=== PATIENT | female | born 1970 | race Two or more races ===

== ENCOUNTER 2024-05-18 02:38 | Inpatient (IN) | payer OTHER ==
[2024-05-18] VITALS (11 sets, daily range): BP systolic 108–135; BP diastolic 58–79; PULSE 63–95; RESP 16–20; TEMP 97.4–98.7; O2SAT 91–99
[~2024-05-18] VITALS: Ht 157.5 cm; Wt 59.2 kg
[2024-05-18] MEDS: DexAMETHasone SOD PHOS 10MG/1ML VIAL INJ ONE (02:39)
[2024-05-18] MEDS: IPRATROPIUM BROM 0.5 MG/2.5ML INH SOL NEB ONE (03:34)
[2024-05-18] MEDS: ALBUTEROL SULF 2.5 MG/0.5ML(0.5%) NEB SOLN NEB ONE (03:34)
[2024-05-18] MEDS: ACETAMINOPHEN 500 MG TAB or CAP PO ONE (03:35)
[2024-05-18] MEDS: DexAMETHasone INJECTION 10 MG in D5W 5% 50 ML IV ONE (03:40)
[2024-05-18 04:03] LABS: Basophils # (auto) 0 10 ^3/uL (0-0.2); Basophils % (auto) 0.8 % (0.0-2.0); Eosinophils # (auto) 0.1 10 ^3/uL (0-0.8); Eosinophils % (auto) 0.9 % (0.0-7.0); Hematocrit 39.9 % (36.0-46.0); Hemoglobin 12.9 g/dL (12.2-16.2); Lymphocytes # (auto) 1.8 10 ^3/uL (0.4-5.4); Lymphocytes % (auto) 28.8 % (10.0-50.0); Mean Corpuscular Hemoglobin 27.6 pg (28.0-32.0); Mean Corpuscular Hgb Conc. 32.4 g/dL (32.0-36.0); Mean Corpuscular Volume 85.2 fL (80.0-100.0); Monocytes # (auto) 0.6 10 ^3/uL (0-1.3); Monocytes % (auto) 9.3 % (0.0-12.0); Neutrophils # (auto) 3.8 10 ^3/uL (1.6-8.6); Neutrophils % (auto) 60.2 % (37.0-80.0); Nucleated Red Blood Cells % 0.1 %; Platelet Count (auto) 238 10^3/uL (140-450); Red Blood Cells 4.69 10^6/uL (4.0-5.20); Red Cell Distribution Width 13.9 % (11.8-14.3); White Blood Cell 6.3 10^3/uL (4.4-10.8)
[2024-05-18 04:19] LABS: Alanine Aminotransferase 11 U/L (7-40); Albumin 4.2 g/dL (3.2-4.8); Alkaline Phosphatase 89 U/L (46-116); Anion Gap 8 (5-15); Aspartate Aminotransferase 18 U/L (13-40); BUN/Creatinine Ratio 13.4 (10.0-20.0); Blood Urea Nitrogen 9 mg/dL (9-23); Calcium 9.3 mg/dL (8.7-10.4); Carbon Dioxide 23 mmol/L (20-31); Potassium 3.7 mmol/L (3.5-5.1); Sodium 140 mmol/L (136-145); Total Protein 6.6 g/dL (5.7-8.2)
--- NOTE | 2024-05-18 04:26 | ED.PDOC ---
SOB-HPI HPI Comments 53-year-old female who came to ER. via EMS for shortness of breath. Patient has history of hypertension and COPD, and is not on home oxygen. Has been having flu-like symptoms for the past few days, progressively worsening with shortness of breath, chest tightness and dizziness. Were saturating 78% on room air, was given breathing treatment and oxygen, it improved to 97% upon arrival. Chief Complaint: Shortness of Breath Time Seen by MD: 04:25 Reviewed notes: Nurses Notes Information Source: Patient Mode of Arrival: EMS Severity: Moderate Timing: Days Duration: Intermittent Context: At Rest, With Light Exertion History of: COPD Prehospital treatment: Breathing Tx, Oxygen Review of Systems REVIEW OF SYSTEMS: No fever, no chills, or fatigue HEENT: No sore throat, no earache, no congestion, no neck pain. Cardiac: (+) chest pain. No palpitations. Lungs: (+) shortness of breath, (+) cough. GI: No nausea, no vomiting, no diarrhea, no constipation, no abdominal pain : No dysuria, frequency, or urgency. No hematuria. Musculoskeletal: No joint pain , no joint swelling, no extremity edema. Skin: No rash, no itching. Neuro: No headache, no dizziness, no weakness Vital Signs Vital Signs Date Time Temp Pulse Resp B/P (MAP) Pulse Ox O2 Delivery O2 Flow Rate FiO2 05/18/24 10:00 75 20 108/58 (75) 95 05/18/24 08:00 98.7 98.7 05/18/24 07:13 Nasal Cannula* 2 28 Physical Exam General: Awake, alert and oriented. No acute distress. Skin: Skin in warm, dry and intact. Appropriate color for ethnicity. Nailbeds pink with no cyanosis. HEENT: The head is normocephalic and atraumatic. Conjunctivae are clear without exudates or hemorrhage. Sclera is non-icteric. EOM are intact. No signs of nystagmus. Eyelids are normal in appearance without swelling or lesions. Oral mucosa is pink and moist. NC in place Neck: The neck is supple with normal range of motion. No JVD. Cardiac: Heart rate and rhythm are normal. No murmurs, gallops, or rubs are auscultated. Respiratory: No signs of respiratory distress. Rhonchi and Wheezing B/L Abdominal: Abdomen is soft, non-tender without distention. Bowel sounds are present and normoactive in all four quadrants. Extremities: Upper and lower extremities are atraumatic in appearance without deformity or edema. Neurological: The patient is awake, alert and oriented to person, place, and time with normal speech. Speech is clear. There is no facial asymmetry. Psychiatric: Appropriate mood and affect. Good judgement and insight. Past Medical History PAST MEDICAL HISTORY: COPD, HTN Past Medical History (Other): Bipolar disorder Surgical History: Denies all surgeries NATIONAL ACCOUNTS RECRUITER History: Denies all NATIONAL ACCOUNTS RECRUITER Hx Family History Family History: Reviewed,noncontributory to illness Social History Smoker: Non-Smoker Alcohol: Denies ETOH Use Drugs: Denies Drug Use Lives In: Home EKG EKG : Pulse Rate (adult): 95 Cardiac Rhythm: NSR Was a procedure done? Was a procedure done?: No Differential Dx Differential Diagnosis: Asthma, Bronchitis, CHF, COPD, Myocardial infarction, Panic Attack, Pneumonia, Respiratory Distress, URI X-Ray, Labs, Meds, VS Vital Signs Date Time Temp Pulse Resp B/P (MAP) Pulse Ox O2 Delivery O2 Flow Rate FiO2 05/18/24 10:00 75 20 108/58 (75) 95 05/18/24 08:00 98.7 98 20 125/71 (89) 95 98.7 05/18/24 07:13 Nasal Cannula* 2 05/18/24 06:30 98 22 113/63 (80) 94 05/18/24 05:30 98.6 98 19 102/58 (73) 94 98.6 05/18/24 04:30 98.6 96 24 119/73 (88) 94 98.6 05/18/24 04:26 95 05/18/24 03:34 18 92 Nasal Cannula* 2 05/18/24 03:15 99.5 107 26 121/85 (97) 97 99.5 05/18/24 03:00 Nasal Cannula* 2 05/18/24 02:47 95 05/18/24 02:46 100.0 87 26 155/78 (103) 96 100.0 Lab Test 05/18/24 03:37 05/18/24 03:12 Range/Units White Blood Count 6.3 4.4-10.8 10^3/uL Red Blood Count 4.69 4.0-5.20 10^6/uL Hemoglobin 12.9 12.2-16.2 g/dL Hematocrit 39.9 36.0-46.0 % Mean Corpuscular Volume 85.2 80.0-100.0 fL Mean Corpuscular Hemoglobin 27.6 L 28.0-32.0 pg Mean Corpuscular Hemoglobin Concent 32.4 32.0-36.0 g/dL Red Cell Distribution Width 13.9 11.8-14.3 % Platelet Count 238 140-450 10^3/uL Mean Platelet Volume 8.0 6.9-10.8 fL Neutrophils (%) (Auto) 60.2 37.0-80.0 % Lymphocytes (%) (Auto) 28.8 10.0-50.0 % Monocytes (%) (Auto) 9.3 0.0-12.0 % Eosinophils (%) (Auto) 0.9 0.0-7.0 % Basophils (%) (Auto) 0.8 0.0-2.0 % Neutrophils # (Auto) 3.8 1.6-8.6 10 ^3/uL Lymphocytes # (Auto) 1.8 0.4-5.4 10 ^3/uL Monocytes # (Auto) 0.6 0-1.3 10 ^3/uL Eosinophils # (Auto) 0.1 0-0.8 10 ^3/uL Basophils # (Auto) 0 0-0.2 10 ^3/uL Nucleated Red Blood Cells 0.1 % Sodium Level 140 136-145 mmol/L Potassium Level 3.7 3.5-5.1 mmol/L Chloride Level 109 H 98-107 mmol/L Carbon Dioxide Level 23 20-31 mmol/L Anion Gap 8 5-15 Blood Urea Nitrogen 9 9-23 mg/dL Creatinine 0.67 0.550-1.02 mg/dL Glomerular Filtration Rate Calc 103 >90 mL/min BUN/Creatinine Ratio 13.4 10.0-20.0 Serum Glucose 122 H 74-106 mg/dL Calcium Level 9.3 8.7-10.4 mg/dL Total Bilirubin 0.2 0.2-1.0 mg/dL Aspartate Amino Transferase (AST) 18 13-40 U/L Alanine Aminotransferase (ALT) 11 7-40 U/L Alkaline Phosphatase 89 46-116 U/L Troponin I High Sensitivity 8 </=34 ng/L B-Type Natriuretic Peptide 38.18 0-100 pg/mL Total Protein 6.6 5.7-8.2 g/dL Albumin 4.2 3.2-4.8 g/dL Influenza Type A Antigen Negative Negative Influenza Type B Antigen Negative Negative SARS-CoV-2 Antigen (Rapid) Negative NEGATIVE Current Medications Medications (Trade) Dose Ordered Sig/Rebeca Route Start Time Stop Time Status Last Admin Azithromycin 250 ml @ 125 mls/hr ONCE ONCE IV 05/18/24 06:00 05/18/24 07:59 DC 05/18/24 06:00 Time of 1ST Reevaluation: 04:13 Reevaluation 1ST: Unchanged Patient Education/Counseling: Diagnosis, Treatment Family Education/Counseling: No Family Present Departure 1 Departure Time of Disposition: 05:56 Impression: Primary Impression: COPD exacerbation Disposition: ADMITTED INPATIENT Condition: Stable Comments Extensive evaluation was performed in attempt to identify or rule out: (See differential diagnosis section) The following tests were ordered, and results were reviewed by me and discussed with patient: (See diagnostic results section) The following test were independently interpreted by me: EKG I reviewed and agreed with the following test results read by other providers: CXR Critical Care Note Critical Care Time?: Yes (35 min-critical care time only) Critical care comment: Shortness of breath Stability Stability form required: No Heart Score Heart Score: Heart Score Response (Comments) Value History Moderate Suspicious 1 EKG Normal 0 Age 45-64 1 Risk Factors 1 or 2 risk factors 1 Troponin Normal limit 0 Total 3 I personally scribed for MICHEAL CORDON MD ([email or web address]) on 05/18/24 at 04:26. Electronically submitted by Dheeraj Cannon ([facility]). MICHEAL CORDON MD May 18, 2024 04:26
[2024-05-18 04:28] LABS: Bilirubin, Total 0.2 mg/dL (0.2-1.0); Chloride 109 mmol/L (98-107); Glucose 122 mg/dL (74-106)
--- NOTE | 2024-05-18 04:56 | DVH ---
CHEST RADIOGRAPH Indication: Shortness of breath Technique: Single frontal view of the chest was obtained Comparison: None IMPRESSION: Heart appears normal in size. The lungs appear clear without focal airspace opacity, effusion, or pn eumothorax
[2024-05-18 05:28] LABS: COVID19 ANTIGEN SOFIA FIA NEGATIVE (NEGATIVE); Rapid Influenza A Negative (Negative); Rapid Influenza B Negative (Negative)
[2024-05-18] MEDS: AZITHROMYCIN 500MG/ 250ML 250 ML IV ONE (06:00)
--- NOTE | 2024-05-18 06:22 | ECG ---
[facility] Test Date: 2024-05-18 Test Time: 02:47:24 Pat Name: ISIAH ABAD Department: ED Room: [facility] Gender: F Die Maker: JEFFREY : 1970 Requested By: MICHEAL CORDON Order Number: [id number] Reading MD: Cheo Loyd Measurements Intervals [place] Rate: 95 P: 36 UT: 148 QRS: 19 QRSD: 63 T: 161 QT: 356 QTc: 448 Interpretive Statements Sinus rhythm Abnormal R-wave progression, early transition Borderline repolarization abnormality Baseline wander in lead(s) V1 Electronically Signed On 05-18-2024 19:21:57 PDT by Cheo Loyd Please click the below link to view image of tracing.
[2024-05-18] MEDS ORDERED: ALBUTEROL SULF 2.5 MG/0.5ML(0.5%) NEB SOLN ONE (10:19)
[2024-05-18] MEDS ORDERED: IPRATROPIUM BROM 0.5 MG/2.5ML INH SOL ONE (10:19)
[2024-05-18] MEDS ORDERED: IPRATROPIUM BROM 0.5 MG/2.5ML INH SOL NEB PRN (10:30)
[2024-05-18] MEDS ORDERED: ONDANSETRON HCL 4 MG/2 ML VIAL IV PRN (10:30)
[2024-05-18] MEDS ORDERED: ALBUTEROL SULF 2.5 MG/0.5ML(0.5%) NEB SOLN NEB PRN (10:30)
--- NOTE | 2024-05-18 10:33 | DVHHP2 ---
History of Present Illness Reason for Visit: Shortness of breath History of Present Illness This 53-year-old female with past medical history of COPD, hypertension presents in the ED with a chief complaint of shortness of breath. The patient states flu-like symptoms with cough, shortness of breath, chest congestion, and dizzin ess started about a week ago. The patient states symptoms has progressed leading to ER visit. The patient O2 sat was in 70s% where she was placed on oxygen with O2 saturation improvement. The patient denies fever, chills, chest pain, or other acute symptoms Past Medical History As stated in HPI Past Surgical History Denies Family History Reviewed, non-contributory to the management of this case. Past Social History Admits to tobacco use Denies illicit drug use or alcohol abuse Review of Systems Constitutional: Yes: Malaise; No: Fever, Chills, Sweats, Weakness, Other Eyes: No: Pain, Vision change, Conjunctivae inflammation, Eyelid inflammation, Other, Redness ENT: No: Ear pain, Ear discharge, Nose pain, Nose discharge, Nose congestion, Mouth pain, Mouth swelling, Throat pain, Throat swelling, Other Respiratory: Cough, Shortness of breath; No: Dry, SOB with excertion, Wheezing, Hemoptysis, Pleuritic Pain, Sputum, Wheezing, Other Cardiovascular: No: Chest Pain, Palpitations, Orthopnea, Paroxysmal Noc. Dy spnea, Edema, Lt Headedness, Other Gastrointestinal: No: Nausea, Vomiting, Abdominal Pain, Diarrhea, Constipation, Melena, Hematochezia, Other Genitourinary: No Dysuria, No Frequency, No Incontinence, No Hematuria, No Retention, No Other Musculoskeletal: No: other, neck pain, shoulder pain, arm pain, back pain, hand pain, leg pain, foot pain Skin: No: Rash, Lesions, Jaundice, Bruising, Other Neurological: No: Weakness, Numbness, Incoordination, Change in speech, Confusion, Seizures, Other Allergies: Coded Allergies: NO KNOWN ALLERGIES (Unverified , 05/18/24) Exam Vital Signs Vital Signs Date Time Temp Pulse Resp B/P (MAP) Pulse Ox O2 Delivery O2 Flow Rate FiO2 05/18/24 10:00 75 20 108/58 (75) 95 05/18/24 08:00 98.7 98.7 05/18/24 07:13 Nasal Cannula* 2 28 General Appearance: Alert, Oriented X3, Cooperative, mild distress HEENT: Atraumatic, PERRLA, EOMI, Mucous membr. moist/pink Respiratory: Other (Diminished lung sounds) Cardiovascular: Regular rate, Normal S1, Normal S2 Abdominal: Normal bowel sounds, Soft, No tenderness Extremities: No clubbing, No cyanosis, No edema, Normal pulses Skin: No rashes, No breakdown, No significant lesion Neuro: Normal gait, Normal tone Psych/Mental Status: Mental status NL Labs/Xrays Labs Test 05/18/24 03:37 05/18/24 03:12 Range/Units White Blood Count 6.3 4.4-10.8 10^3/uL Red Blood Count 4.69 4.0-5.20 10^6/uL Hemoglobin 12.9 12.2-16.2 g/dL Hematocrit 39.9 36.0-46.0 % Mean Corpuscular Volume 85.2 80.0-100.0 fL Mean Corpuscular Hemoglobin 27.6 L 28.0-32.0 pg Mean Corpuscular Hemoglobin Concent 32.4 32.0-36.0 g/dL Red Cell Distribution Width 13.9 11.8-14.3 % Platelet Count 238 140-450 10^3/uL Mean Platelet Volume 8.0 6.9-10.8 fL Neutrophils (%) (Auto) 60.2 37.0-80.0 % Lymphocytes (%) (Auto) 28.8 10.0-50.0 % Monocytes (%) (Auto) 9.3 0.0-12.0 % Eosinophils (%) (Auto) 0.9 0.0-7.0 % Basophils (%) (Auto) 0.8 0.0-2.0 % Neutrophils # (Auto) 3.8 1.6-8.6 10 ^3/uL Lymphocytes # (Auto) 1.8 0.4-5.4 10 ^3/uL Monocytes # (Auto) 0.6 0-1.3 10 ^3/uL Eosinophils # (Auto) 0.1 0-0.8 10 ^3/uL Basophils # (Auto) 0 0-0.2 10 ^3/uL Nucleated Red Blood Cells 0.1 % Sodium Level 140 136-145 mmol/L Potassium Level 3.7 3.5-5.1 mmol/L Chloride Level 109 H 98-107 mmol/L Carbon Dioxide Level 23 20-31 mmol/L Anion Gap 8 5-15 Blood Urea Nitrogen 9 9-23 mg/dL Creatinine 0.67 0.550-1.02 mg/dL Glomerular Filtration Rate Calc 103 >90 mL/min BUN/Creatinine Ratio 13.4 10.0-20.0 Serum Glucose 122 H 74-106 mg/dL Calcium Level 9.3 8.7-10.4 mg/dL Total Bilirubin 0.2 0.2-1.0 mg/dL Aspartate Amino Transferase (AST) 18 13-40 U/L Alanine Aminotransferase (ALT) 11 7-40 U/L Alkaline Phosphatase 89 46-116 U/L Troponin I High Sensitivity 8 </=34 ng/L B-Type Natriuretic Peptide 38.18 0-100 pg/mL Total Protein 6.6 5.7-8.2 g/dL Albumin 4.2 3.2-4.8 g/dL Influenza Type A Antigen Negative Negative Influenza Type B Antigen Negative Negative SARS-CoV-2 Antigen (Rapid) Negative NEGATIVE PROCEDURE(s): CXR1 - CHEST XRAY 1 VIEW REASON: Shortness of breath ORDER NUMBER(s): [id number], ACCESSION NUMBER(s): [id number] CHEST RADIOGRAPH Indication: Shortness of breath Technique: Single frontal view of the chest was obtained Comparison: None IMPRESSION: Heart appears normal in size. The lungs appear clear without focal airspace opacity, effusion, or pneumothorax Assessment/Plan Assessment/Plan # Acute on chronic respiratory failure with hypoxemia # COPD exacerbation Admit to medical unit Pulmonary consult DuoNeb treatment O2 supplement Chest x-ray in a.m. # Rule out PE CTA # hypertension Continue with lisinopril # tobacco use Smoking cessation counseled Nicotine patch # anxiety, depression, schizophrenia Reconciled home meds DVT prophylaxis Medical plan discussed with patient Plan discussed with: Patient My Orders Orders - YANET GIBBS Procedure Category Date Status Time Admit ADMIT 05/18/24 Verified 10:25 Code Status CODE 05/18/24 Verified 10:25 Ondansetron Hcl PHA 05/18/24 Verified (Zofran) 10:30 Enoxaparin Sodium PHA 05/19/24 Verified (Lovenox) 10:00 Date of Service: May 18, 2024 Billing Provider: JUAT,YANET C FRONT DESK RECEPTIONIST Common Visit Codes: [id number] INP/OBS CARE (HIGH) YANET GIBBS FRONT DESK RECEPTIONIST May 18, 2024 10:33
[2024-05-18] MEDS ORDERED: BUPR150T18 PO (10:34)
[2024-05-18] MEDS ORDERED: TRAZ-227 PO (10:34)
[2024-05-18] MEDS ORDERED: ASPI81CH59 PO (10:34)
[2024-05-18] MEDS ORDERED: LISI20TA56 PO (10:34)
[2024-05-18] MEDS ORDERED: LURA60TA PO (10:34)
[2024-05-18] MEDS ORDERED: SERT-160 PO (10:34)
[2024-05-18] MEDS: NICOTINE 7MG/24HR TOPICAL PATCH TD ONE (10:48)
[2024-05-18] MEDS: ALBUTEROL SULF 2.5 MG/0.5ML(0.5%) NEB SOLN NEB SCH (11:45)
[2024-05-18] MEDS: IPRATROPIUM BROM 0.5 MG/2.5ML INH SOL NEB SCH (11:45)
[2024-05-18] MEDS ORDERED: DOCU-94 PO (12:34)
--- NOTE | 2024-05-18 13:36 | DVHINCON2 ---
Date of service: May 18, 2024 Referring Physician jessica harmon Reason for Consultation copd History of Present Illness HPI pt is a 53 yo female, active smoker, with copd, diagnosed in [place]. Pt moved recently to this area. Pt presented with wheezing/cough, yellow mucus and shortn ess of breath, worse over 2 weeks. Desaturating in ER, placed on suppl 02. Pt usually takes anoro and albuterol inhalers Home Meds Reported Medications Docusate Sodium (Colace) 100 Mg Cap, 100 MG PO DAILY, CAP 05/18/24 Lurasidone Hydrochloride (Lurasidone Hydrochloride) 60 Mg Tab, 1 TAB PO DAILY 05/18/24 Aspirin (Aspirin Low Dose) 81 Mg Chw, 1 TAB PO DAILY 05/18/24 Bupropion Hcl (Bupropion Hcl Xl) 150 Mg Tab, 1 TAB PO QAM 05/18/24 Trazodone Hcl (Trazodone Hcl) 50 Mg Tab, 1-2 TAB PO QHSP PRN 05/18/24 Sertraline Hcl (Sertraline Hcl) 100 Mg Tab, 2 TAB PO QAM 05/18/24 Lisinopril (Lisinopril) 20 Mg Tab, 1 TAB PO DAILY 05/18/24 H&P Exam Vital Signs Vital Signs Date Time Temp Pulse Resp B/P (MAP) Pulse Ox O2 Delivery O2 Flow Rate FiO2 05/18/24 11:49 98.7 95 18 108/58 98 2.0 28 98.7 05/18/24 11:46 Nasal Cannula* Labs/Xrays Labs Test 05/18/24 03:37 05/18/24 03:12 Range/Units White Blood Count 6.3 4.4-10.8 10^3/uL Red Blood Count 4.69 4.0-5.20 10^6/uL Hemoglobin 12.9 12.2-16.2 g/dL Hematocrit 39.9 36.0-46.0 % Mean Corpuscular Volume 85.2 80.0-100.0 fL Mean Corpuscular Hemoglobin 27.6 L 28.0-32.0 pg Mean Corpuscular Hemoglobin Concent 32.4 32.0-36.0 g/dL Red Cell Distribution Width 13.9 11.8-14.3 % Platelet Count 238 140-450 10^3/uL Mean Platelet Volume 8.0 6.9-10.8 fL Neutrophils (%) (Auto) 60.2 37.0-80.0 % Lymphocytes (%) (Auto) 28.8 10.0-50.0 % Monocytes (%) (Auto) 9.3 0.0-12.0 % Eosinophils (%) (Auto) 0.9 0.0-7.0 % Basophils (%) (Auto) 0.8 0.0-2.0 % Neutrophils # (Auto) 3.8 1.6-8.6 10 ^3/uL Lymphocytes # (Auto) 1.8 0.4-5.4 10 ^3/uL Monocytes # (Auto) 0.6 0-1.3 10 ^3/uL Eosinophils # (Auto) 0.1 0-0.8 10 ^3/uL Basophils # (Auto) 0 0-0.2 10 ^3/uL Nucleated Red Blood Cells 0.1 % Sodium Level 140 136-145 mmol/L Potassium Level 3.7 3.5-5.1 mmol/L Chloride Level 109 H 98-107 mmol/L Carbon Dioxide Level 23 20-31 mmol/L Anion Gap 8 5-15 Blood Urea Nitrogen 9 9-23 mg/dL Creatinine 0.67 0.550-1.02 mg/dL Glomerular Filtration Rate Calc 103 >90 mL/min BUN/Creatinine Ratio 13.4 10.0-20.0 Serum Glucose 122 H 74-106 mg/dL Calcium Level 9.3 8.7-10.4 mg/dL Total Bilirubin 0.2 0.2-1.0 mg/dL Aspartate Amino Transferase (AST) 18 13-40 U/L Alanine Aminotransferase (ALT) 11 7-40 U/L Alkaline Phosphatase 89 46-116 U/L Troponin I High Sensitivity 8 </=34 ng/L B-Type Natriuretic Peptide 38.18 0-100 pg/mL Total Protein 6.6 5.7-8.2 g/dL Albumin 4.2 3.2-4.8 g/dL Influenza Type A Antigen Negative Negative Influenza Type B Antigen Negative Negative SARS-CoV-2 Antigen (Rapid) Negative NEGATIVE Assessment/Plan Plan acute exacerbation of copd acute hypoxemic resp failure atelectases active smoker seen and examined in the ER suppl 02 steroids bronchodilators abx Plan discussed with: Other (rn) KOFI CHEN MD May 18, 2024 13:35
[2024-05-18] MEDS ORDERED: IOHEXOL 350 MG/ML 100ML IJ ONE (14:33)
--- NOTE | 2024-05-18 16:13 | DVH ---
Procedure: CT CT ANGIO CHEST CONTRAST Reason for study/Clinical History: rule pe Comparison Study: None available at time of dictation. Exam Date: 05/18/2024 03:29 PM Radiation Dose Information: CT Dose: CTDI volume is 12.91 mGy. Dose-length product is 457.36 mGy*cm Contrast: Type of contrast: Omnipaque 350 Contrast inject: IV 6 mL Contrast wasted:0 TECHNIQUE: After the uneventful administration of intravenous contrast intravenously, CT imaging was performed through the chest. Coronal and sagittal reformations were performed by the technologist. Sagittal and coronal MIP images were reconstructed and submitted for interpretation. FINDINGS: Lower Neck: Visualized portions of the thyroid gland are unremarkable. Aorta and Vasculature: Normal caliber of thoracic aorta. Lymph Nodes: No enlarged intrathoracic lymph nodes. Mediastinum: Heart size is normal. There is no pericardial effusion. The esophagus is unremarkable. Lungs: No focal consolidation, pleural effusion or significant pneumothorax. No suspicious pulmonary nodule or mass. Musculoskeletal: No acute osseous abnormality. Upper abdomen: Gallbladder has been surgically removed. Biliary stent in place. IMPRESSION: 1. No filling defects in the pulmonary artery to suggest pulmonary emboli. No enlargement of the pulm onary artery to suggest pulmonary artery hypertension. 2. No pulmonary infiltrates or pleural effusions. 3. All CT scans at this medical facility are performed using dose modulation techniques as appropriate t o a performed exam including the following: Automated exposure control was utilized; adjustment of th e MA and/or KV according to patient size; and use of iterative reconstruction technique. HS:Y
[2024-05-18] MEDS: methylPREDNISolone SOD SUCC 125 MG/2 ML VL IV SCH (23:18)
[2024-05-19] VITALS (15 sets, daily range): BP systolic 109–140; BP diastolic 58–84; PULSE 62–94; RESP 16–20; TEMP 97.6–98.3; O2SAT 95–100
[2024-05-19] MEDS: SERTRALINE HCL 50 MG TAB PO SCH (06:05)
[2024-05-19] MEDS: ACETAMINOPHEN 325 MG TAB PO PRN (06:21)
[2024-05-19 06:43] LABS: Alanine Aminotransferase 10 U/L (7-40); Anion Gap 8 (5-15); Calcium 9.4 mg/dL (8.7-10.4); Carbon Dioxide 25 mmol/L (20-31); Glucose 94 mg/dL (74-106); Potassium 3.9 mmol/L (3.5-5.1); Sodium 142 mmol/L (136-145)
[2024-05-19 06:44] LABS: Total Protein 6.5 g/dL (5.7-8.2)
[2024-05-19 06:45] LABS: Aspartate Aminotransferase 14 U/L (13-40); Basophils # (auto) 0 10 ^3/uL (0-0.2); Basophils % (auto) 0.3 % (0.0-2.0); Bilirubin, Total 0.2 mg/dL (0.2-1.0); Chloride 109 mmol/L (98-107); Eosinophils # (auto) 0 10 ^3/uL (0-0.8); Eosinophils % (auto) 0.7 % (0.0-7.0); Hematocrit 37.2 % (36.0-46.0); Hemoglobin 12.3 g/dL (12.2-16.2); Lymphocytes # (auto) 2.3 10 ^3/uL (0.4-5.4); Lymphocytes % (auto) 35.9 % (10.0-50.0); Mean Corpuscular Hemoglobin 27.8 pg (28.0-32.0); Mean Corpuscular Hgb Conc. 33.2 g/dL (32.0-36.0); Mean Corpuscular Volume 83.7 fL (80.0-100.0); Monocytes # (auto) 0.8 10 ^3/uL (0-1.3); Neutrophils # (auto) 3.3 10 ^3/uL (1.6-8.6); Neutrophils % (auto) 51.1 % (37.0-80.0); Nucleated Red Blood Cells % 0.1 %; Platelet Count (auto) 253 10^3/uL (140-450); Red Blood Cells 4.44 10^6/uL (4.0-5.20); Red Cell Distribution Width 13.7 % (11.8-14.3); White Blood Cell 6.4 10^3/uL (4.4-10.8)
[2024-05-19 06:46] LABS: Albumin 4.1 g/dL (3.2-4.8)
[2024-05-19 06:52] LABS: Alkaline Phosphatase 75 U/L (46-116)
[2024-05-19 07:02] LABS: BUN/Creatinine Ratio 20.3 (10.0-20.0); Blood Urea Nitrogen 14 mg/dL (9-23)
[2024-05-19] MEDS: ASPirin 81 mg TAB PO SCH (09:40)
[2024-05-19] MEDS: ENOXAPARIN SOD 40 MG/0.4 ML SYRINGE SC SCH (09:41)
[2024-05-19] MEDS: LISINOPRIL 20 MG TAB PO SCH (09:42)
[2024-05-19] MEDS: NICOTINE 7MG/24HR TOPICAL PATCH TD SCH (10:00)
--- NOTE | 2024-05-19 12:54 | DVHPNRES ---
Progress Note Date Seen: May 19, 2024 Resident Creating Document: ALEK FLEMING RESIDENT Medical Necessity Reason Pt with a Central, PICC or Fol: No Subjective Review of Systems This is a 53-year-old female with past medical history of COPD not on home oxygen, hypertension, asthma, cholecystectomy 03/2023 who presents to the ER with a chief complaint of shortness of breaths and low O2 saturation in 70s. She is visiting her daughter and grandkids from [place], when she started to develop shortness of breath which did not relieve by increasing albuterol inhaler treatments. Patient takes Anoro inhaler once a day, albuterol as needed, fluticasone inhaler which she takes on and off, she reports flu-like symptoms including chills, generalized weakness and fatigue, runny nose over the past 7 days which progressed to shortness of breaths for the past 2 days along with cough which was productive with green phlegm. She has a smoked 1 pack a day for the past 30 years, for the past 3 months she is smoking 1 cigarette in a day... On arrival, patient was febrile 100.0, no afebrile. Blood pressure was relatively/78. CBC and BMP were unremarkable. CT angio ruled out lower embolism. Medical/surgical history: See above Home medications: Aspirin, bupropion, docusate, lisinopril, lurasidone , sertraline, trazodone, albuterol inhaler, Anoro inhaler, fluticasone inhaler Patient seen and examined at the bedside. Reports feeling better. Objective vital signs Vital Sign Date Time Temp Pulse Resp B/P (MAP) Pulse Ox O2 Delivery O2 Flow Rate FiO2 05/19/24 09:42 118/68 05/19/24 09:02 97.6 81 18 95 97.6 05/19/24 06:01 Nasal Cannula 2.0 05/19/24 06:01 28 Total Intake and Output 05/18/24 05/18/24 05/19/24 15:00 23:00 07:00 Intake Total 100 ml 1100 ml Balance 100 ml 1100 ml medications Current Medications Medications Dose Ordered Sig/Rebeca Route Start Time Stop Time Status Last Admin Dose Admin Ondansetron HCl 4 mg Q4HP PRN IV 05/18/24 10:30 Enoxaparin Sodium 40 mg DAILY SC 05/19/24 10:00 05/19/24 09:41 40 MG Albuterol 2.5 mg Q4HPRN PRN NEB 05/18/24 10:30 Albuterol 2.5 mg Q6HR NEB 05/18/24 12:00 05/19/24 06:01 2.5 MG Ipratropium [place] 0.5 mg Q4HPRN PRN NEB 05/18/24 10:30 Ipratropium [place] 0.5 mg Q6HR NEB 05/18/24 12:00 05/19/24 06:01 0.5 MG Methylprednisolone Sodium Succinate 60 mg BID IV 05/18/24 22:00 05/19/24 09:41 60 MG Nicotine 1 patch DAILY TD 05/19/24 10:00 Lisinopril 20 mg DAILY PO 05/19/24 10:00 05/19/24 09:42 20 MG Aspirin 81 mg DAILY PO 05/19/24 10:00 05/19/24 09:40 81 MG Patient Own Medication 1 tab QAM PO 05/19/24 07:00 Patient Own Medication 1 tab QPM PO 05/19/24 18:00 Sertraline HCl 200 mg QAM PO 05/19/24 07:00 05/19/24 06:05 200 MG Acetaminophen 500 mg Q6HP PRN PO 05/18/24 16:45 05/19/24 06:21 500 MG Examination Patient lying in bed, in no acute distress General: Well-built, afebrile, palor, mucosae are moist Cardiovascular: Regular S1 and S2. No murmurs, gallops or rubs. No JVD elevation. No pedal edema Respiratory: Equal bilateral air entry on 2 L oxygen, saturating 95% Abdomen: Soft, nontender, nondistended, normoactive bowel sounds, no rebound tenderness, no organomegaly, no masses Genitourinary: Deferred MSK/skin: Mobilizes 4 limbs. Skin is dry and warm Neurological: No motor, no sensitive deficits, normal speech. Pupils are isocoric and reactive. Psych/Mental Status: A/Ox3 laboratory and microbiology Laboratory Tests 05/19/24 05:54 Test 05/19/24 05:54 Range/Units Serum Glucose 94 74-106 mg/dL Labs and/or images reviewed: Labs reviewed by me, Image(s) reviewed by me Problem List/Assessment/Plan Problem List/Assessment/Plan Acute COPD exacerbation secondary to viral pneumonia Acute hypoxic respiratory failure secondary to above COVID and influenza testing pending Solu-Medrol 60 mg IV b.i.d., switched to 40 mg IV b.i.d. Nebulized treatment and ipratropium and albuterol every q.6 hour IV azithromycin starting 05/19 Weaning of oxygen Hypertension Continue home medication lisinopril 20 mg daily Nicotine dependence Nicotine patch daily LOVENOX 40 MG SC DAILY Plan discussed with patient in which all questions have been answered Goals of care discussed for more than 25 minutes, full code status Case discussed with Dr. Morales Plan discussed with: Patient Date of Service: May 19, 2024 Billing Provider: LATRICIA MORALES DO Common Visit Codes: [id number] INP/OBS CARE(HIGH) ALEK FLEMING RESIDENT May 19, 2024 12:54 LATRICIA MORALES DO May 21, 2024 16:28
[2024-05-19] MEDS: AZITHROMYCIN 500MG/ 250ML 250 ML IV ONE (16:37)
[2024-05-19] MEDS: LURASIDONE HYDROCHLORIDE 60 MG PO SCH (18:00)
--- NOTE | 2024-05-19 20:18 | DVHPN2 ---
Progress Note - Dictate Date Seen: May 19, 2024 Medical Necessity Reason Pt with a Central, PICC or Fol: No Subjective Patient seen and examined at bedside. Remains on supplemental oxygen Overnight events reviewed. vital signs Vital Sign Date Time Temp Pulse Resp B/P (MAP) Pulse Ox O2 Delivery O2 Flow Rate FiO2 05/19/24 20:14 83 16 97 05/19/24 20:08 Nasal Cannula 2.0 05/19/24 20:08 28 05/19/24 16:30 97.7 140/84 (102) 97.7 Total Intake and Output 05/18/24 05/18/24 05/19/24 15:00 23:00 07:00 Intake Total 100 ml 1100 ml Balance 100 ml 1100 ml medications Current Medications Medications Dose Ordered Sig/Rebeca Route Start Time Stop Time Status Last Admin Dose Admin Ondansetron HCl 4 mg Q4HP PRN IV 05/18/24 10:30 Enoxaparin Sodium 40 mg DAILY SC 05/19/24 10:00 05/19/24 09:41 40 MG Albuterol 2.5 mg Q6HR NEB 05/18/24 12:00 05/19/24 20:08 2.5 MG Ipratropium [place] 0.5 mg Q6HR NEB 05/18/24 12:00 05/19/24 20:08 0.5 MG Nicotine 1 patch DAILY TD 05/19/24 10:00 Lisinopril 20 mg DAILY PO 05/19/24 10:00 05/19/24 09:42 20 MG Aspirin 81 mg DAILY PO 05/19/24 10:00 05/19/24 09:40 81 MG Patient Own Medication 1 tab QPM PO 05/19/24 18:00 05/19/24 18:00 1 TAB Sertraline HCl 200 mg QAM PO 05/19/24 07:00 05/19/24 06:05 200 MG Acetaminophen 500 mg Q6HP PRN PO 05/18/24 16:45 05/19/24 06:21 500 MG Methylprednisolone Sodium Succinate 40 mg BID IV 05/19/24 22:00 Azithromycin 250 ml @ 125 mls/hr DAILY IV 05/20/24 10:00 Bupropion HCl 75 mg BID PO 05/19/24 22:00 objective Gen.: Patient lying in bed in no apparent distress. On supplemental oxygen. Head: Normocephalic, atraumatic. Eyes: EOMI/PERRLA. Ears: Normal hearing. Normal anatomy. Neck/trachea: Trachea midline, supple. Nose: Normal external anatomy. Mouth: Moist mucous membranes. Chest: Decreased air entry bilaterally. No wheezing or rhonchi. Cardiovascular: Positive S1, positive S2. Regular rate and rhythm. Abdomen: Positive bowel sounds in all 4 quadrants. Soft, non-tender, non- distended. : Deferred. Rectal: Deferred. Skin: Warm, dry. Intact. Extremities: 2+ radial pulses bilaterally. No lower extremity edema. Neuro: Awake, alert, oriented x3. No gross motor or sensory deficits. Cranial nerves II through XII intact. Gait not assessed. laboratory and microbiology Laboratory Tests 05/19/24 05:54 Test 05/19/24 05:54 Range/Units Serum Glucose 94 74-106 mg/dL Assessment/Plan Impression: Acute exacerbation of COPD Acute hypoxemic respiratory failure Atelectasis Nicotine dependence Events: Remains on supplemental oxygen, 2 LPM NC Taper O2 as tolerated Head of bed elevation Aspiration precautions Continue bronchodilators Continue steroids Continue antibiotics Incentive spirometry Disposition per hospitalist Labs and imaging reviewed. Rest of plan as noted below. Plan: Supplemental oxygen Titrate to keep O2 sats above 92%. Steroids Bronchodilators Antibiotics Incentive spirometry Smoking cessation education given. Prognosis: Guarded given patient's multiple co-morbidities. Rest of plan per hospitalist and other consultants. Thank you, Dr. Adair, for allowing me to participate in this patient's care. Further recommendations will depend on the patient's clinical course. Please do not hesitate to contact me if you have any questions or concerns. This medical document was created using an electronic medical record system with [employer] dictation system. Although these documentations are being carefully reviewed, there may still be some phonetic and typographical changes. The errors are purely typographical, due to imperfection on the software program, and do not reflect any compromise in the patient's medical care. Plan discussed with: Patient, Other (OLEG Gregorio) YUNIOR TAN MD May 19, 2024 20:18
[2024-05-19] MEDS: buPROPion HCL 75 MG TAB PO SCH (22:28)
[2024-05-19] MEDS: methylPREDNISolone SOD SUCC 125 MG/2 ML VL IV SCH (22:30)
[2024-05-20] VITALS (20 sets, daily range): BP systolic 93–140; BP diastolic 54–80; PULSE 64–85; RESP 12–20; TEMP 97.1–98.2; O2SAT 93–100
[2024-05-20 06:18] LABS: Potassium 4.1 mmol/L (3.5-5.1); Sodium 141 mmol/L (136-145)
[2024-05-20 06:19] LABS: Anion Gap 10 (5-15); Carbon Dioxide 23 mmol/L (20-31)
[2024-05-20 06:20] LABS: Calcium 9.6 mg/dL (8.7-10.4)
[2024-05-20 06:24] LABS: BUN/Creatinine Ratio 24.1 (10.0-20.0); Blood Urea Nitrogen 19 mg/dL (9-23)
[2024-05-20 06:32] LABS: Chloride 108 mmol/L (98-107); Glucose 139 mg/dL (74-106)
[2024-05-20] MEDS: AZITHROMYCIN 500MG/ 250ML 250 ML IV SCH (09:56)
[2024-05-20] MEDS: SUMAtriptan SUCCINATE 25 MG TAB PO ONE (10:44)
[2024-05-20] MEDS: ACETAMINOPHEN 325 MG TAB PO ONE (10:45)
--- NOTE | 2024-05-20 14:32 | DVHPNRES ---
Progress Note Date Seen: May 20, 2024 Resident Creating Document: ALEK FLEMING RESIDENT Medical Necessity Reason Pt with a Central, PICC or Fol: No Subjective Review of Systems This is a 53-year-old female with past medical history of COPD not on home oxygen, hypertension, asthma, cholecystectomy 03/2023 who presents to the ER with a chief complaint of shortness of breaths and low O2 saturation in 70s. She is visiting her daughter and grandkids from [place], when she started to develop shortness of breath which did not relieve by increasing albuterol inhaler treatments. Patient takes Anoro inhaler once a day, albuterol as needed, fluticasone inhaler which she takes on and off, she reports flu-like symptoms including chills, generalized weakness and fatigue, runny nose over the past 7 days which progressed to shortness of breaths for the past 2 days along with cough which was productive with green phlegm. She has a smoked 1 pack a day for the past 30 years, for the past 3 months she is smoking 1 cigarette in a day... On arrival, patient was febrile 100.0, no afebrile. Blood pressure was relatively/78. CBC and BMP were unremarkable. CT angio ruled out lower embolism. Medical/surgical history: See above Home medications: Aspirin, bupropion, docusate, lisinopril, lurasidone , sertraline, trazodone, albuterol inhaler, Anoro inhaler, fluticasone inhaler 05/20-patient reports breathing better, reports migraine like headache, started home medication sumatriptan 50 mg daily. Respiratory Culture shows Gram- positive cocci in chains, Rare Gram Negative Rods Objective vital signs Vital Sign Date Time Temp Pulse Resp B/P (MAP) Pulse Ox O2 Delivery O2 Flow Rate FiO2 05/20/24 12:01 70 18 100 05/20/24 11:55 Nasal Cannula* 2 28 05/20/24 09:57 126/61 05/20/24 08:30 97.7 97.7 Total Intake and Output 05/19/24 05/19/24 05/20/24 15:00 23:00 07:00 Intake Total 910 ml 400 ml Balance 910 ml 400 ml medications Current Medications Medications Dose Ordered Sig/Rebeca Route Start Time Stop Time Status Last Admin Dose Admin Ondansetron HCl 4 mg Q4HP PRN IV 3/16/25 10:30 Enoxaparin Sodium 40 mg DAILY SC 05/19/24 10:00 05/20/24 10:34 40 MG Albuterol 2.5 mg Q6HR NEB 05/18/24 12:00 05/20/24 11:52 2.5 MG Ipratropium [place] 0.5 mg Q6HR NEB 05/18/24 12:00 05/20/24 11:52 0.5 MG Nicotine 1 patch DAILY TD 05/19/24 10:00 Lisinopril 20 mg DAILY PO 05/19/24 10:00 05/20/24 09:57 20 MG Aspirin 81 mg DAILY PO 05/19/24 10:00 05/20/24 09:56 81 MG Patient Own Medication 1 tab QPM PO 05/19/24 18:00 05/19/24 18:00 1 TAB Sertraline HCl 200 mg QAM PO 05/19/24 07:00 05/20/24 05:54 200 MG Acetaminophen 500 mg Q6HP PRN PO 05/18/24 16:45 05/19/24 22:58 500 MG Methylprednisolone Sodium Succinate 40 mg BID IV 05/19/24 22:00 05/20/24 09:56 40 MG Azithromycin 250 ml @ 125 mls/hr DAILY IV 05/20/24 10:00 05/20/24 09:56 125 MLS/HR Bupropion HCl 75 mg BID PO 05/19/24 22:00 05/20/24 10:34 75 MG Sumatriptan Succinate 50 mg Q8HPRN PRN PO 05/20/24 16:00 Examination Patient lying in bed, in no acute distress General: Well-built, afebrile, palor, mucosae are moist Cardiovascular: Regular S1 and S2. No murmurs, gallops or rubs. No JVD elevation. No pedal edema Respiratory: Bilateral decreased expiratory phase, decreased breath sounds on auscultation. Saturating 96 on 2 L NC. Abdomen: Soft, nontender, nondistended, normoactive bowel sounds, no rebound tenderness, no organomegaly, no masses Genitourinary: Deferred MSK/skin: Mobilizes 4 limbs. Skin is dry and warm Neurological: No motor, no sensitive deficits, normal speech. Pupils are isocoric and reactive. Psych/Mental Status: A/Ox3 laboratory and microbiology Laboratory Tests 05/20/24 05:29 05/19/24 05:54 Test 05/20/24 05:29 Range/Units Serum Glucose 139 H 74-106 mg/dL Microbiology Date/Time Source Procedure Growth Status 05/18/24 23:00 Sputum Gram Stain - Final Resulted 05/18/24 23:00 Sputum Respiratory Culture Pending Resulted Labs and/or images reviewed: Labs reviewed by me, Image(s) reviewed by me Problem List/Assessment/Plan Problem List/Assessment/Plan 05/20-patient reports breathing better, reports migraine like headache, started home medication sumatriptan 50 mg daily. Respiratory Culture shows Gram- positive cocci in chains, Rare Gram Negative Rods Acute COPD exacerbation secondary to viral pneumonia Acute hypoxic respiratory failure secondary to above COVID and influenza testing negative Solu-Medrol 60 mg IV b.i.d., switched to 40 mg IV b.i.d. Nebulized treatment and ipratropium and albuterol every q.6 hour IV azithromycin starting 05/19 Weaning of oxygen Hypertension Continue home medication lisinopril 20 mg daily Nicotine dependence Nicotine patch daily Migraine headache Sumatriptan 50 mg daily p.r.n. LOVENOX 40 MG SC DAILY Plan discussed with patient in which all questions have been answered Goals of care discussed for more than 25 minutes, full code status Case discussed with Dr. Morales Plan discussed with: Patient My Orders My Orders Orders - ALEK FLEMING Procedure Category Date Status Time Sumatriptan Succinate PHA 05/20/24 In Process Tablet (Imitrex Ta 16:00 Date of Service: May 20, 2024 Billing Provider: LATRICIA MORALES DO Common Visit Codes: [id number] INP/OBS CARE(HIGH) ALEK FLEMING May 20, 2024 14:32 LATRICIA MORALES DO May 21, 2024 16:29
[2024-05-20] MEDS ORDERED: hydrOXYzine 25 MG TAB or CAP PO PRN (14:45)
[2024-05-20] MEDS ORDERED: SUMAtriptan SUCCINATE 25 MG TAB PO PRN (16:00)
--- NOTE | 2024-05-20 23:25 | DVHPN2 ---
Progress Note - Dictate Date Seen: May 20, 2024 Medical Necessity Reason Pt with a Central, PICC or Fol: No Subjective Patient seen and examined at bedside. Remains on supplemental oxygen Overnight events reviewed. vital signs Vital Sign Date Time Temp Pulse Resp B/P (MAP) Pulse Ox O2 Delivery O2 Flow Rate FiO2 05/20/24 21:00 97.6 85 20 124/62 (82) 95 97.6 05/20/24 20:00 Nasal Cannula* 2 28 Total Intake and Output 05/19/24 05/19/24 05/20/24 15:00 23:00 07:00 Intake Total 910 ml 400 ml Balance 910 ml 400 ml medications Current Medications Medications Dose Ordered Sig/Rebeca Route Start Time Stop Time Status Last Admin Dose Admin Ondansetron HCl 4 mg Q4HP PRN IV 05/18/24 10:30 Enoxaparin Sodium 40 mg DAILY SC 05/19/24 10:00 05/20/24 10:34 40 MG Albuterol 2.5 mg Q6HR NEB 05/18/24 12:00 05/20/24 17:49 2.5 MG Ipratropium [place] 0.5 mg Q6HR NEB 05/18/24 12:00 05/20/24 17:49 0.5 MG Nicotine 1 patch DAILY TD 05/19/24 10:00 Lisinopril 20 mg DAILY PO 05/19/24 10:00 05/20/24 09:57 20 MG Aspirin 81 mg DAILY PO 05/19/24 10:00 05/20/24 09:56 81 MG Sertraline HCl 200 mg QAM PO 05/19/24 07:00 05/20/24 05:54 200 MG Acetaminophen 500 mg Q6HP PRN PO 05/18/24 16:45 05/19/24 22:58 500 MG Methylprednisolone Sodium Succinate 40 mg BID IV 05/19/24 22:00 05/20/24 21:26 40 MG Azithromycin 250 ml @ 125 mls/hr DAILY IV 05/20/24 10:00 05/20/24 09:56 125 MLS/HR Bupropion HCl 75 mg BID PO 05/19/24 22:00 05/20/24 21:26 75 MG Sumatriptan Succinate 50 mg Q8HPRN PRN PO 05/20/24 16:00 Hydroxyzine Pamoate 50 mg Q6HP PRN PO 05/20/24 14:45 Patient Own Medication 1 tab DAILY PO 05/21/24 10:00 objective Gen.: Patient lying in bed in no apparent distress. On supplemental oxygen. Head: Normocephalic, atraumatic. Eyes: EOMI/PERRLA. Ears: Normal hearing. Normal anatomy. Neck/trachea: Trachea midline, supple. Nose: Normal external anatomy. Mouth: Moist mucous membranes. Chest: Decreased air entry bilaterally. No wheezing or rhonchi. Cardiovascular: Positive S1, positive S2. Regular rate and rhythm. Abdomen: Positive bowel sounds in all 4 quadrants. Soft, non-tender, non- distended. : Deferred. Rectal: Deferred. Skin: Warm, dry. Intact. Extremities: 2+ radial pulses bilaterally. No lower extremity edema. Neuro: Awake, alert, oriented x3. No gross motor or sensory deficits. Cranial nerves II through XII intact. Gait not assessed. laboratory and microbiology Laboratory Tests 05/20/24 05:29 05/19/24 05:54 Test 05/20/24 05:29 Range/Units Serum Glucose 139 H 74-106 mg/dL Assessment/Plan Impression: Acute exacerbation of COPD Acute hypoxemic respiratory failure Atelectasis Nicotine dependence Events: Remains on supplemental oxygen, 2 LPM NC Taper O2 as tolerated O2 requirements improved. Head of bed elevation Aspiration precautions Continue bronchodilators Continue steroids Continue antibiotics Incentive spirometry Assess for home O2 requirements prior to discharge. DME for nebulizer and nebulizer supplies. Give script for albuterol-ipratropium nebulizer. Disposition per hospitalist Labs and imaging reviewed. Rest of plan as noted below. Plan: Supplemental oxygen Titrate to keep O2 sats above 92%. Steroids Bronchodilators Antibiotics Incentive spirometry Smoking cessation education given. Prognosis: Guarded given patient's multiple co-morbidities. Rest of plan per hospitalist and other consultants. Thank you, Dr. Adair, for allowing me to participate in this patient's care. Further recommendations will depend on the patient's clinical course. Please do not hesitate to contact me if you have any questions or concerns. This medical document was created using an electronic medical record system with [employer] system. Although these documentations are being carefully reviewed, there may still be some phonetic and typographical changes. The errors are purely typographical, due to imperfection on the software program, and do not reflect any compromise in the patient's medical care. Plan discussed with: Patient, Other (YUNIOR Ramsay MD May 20, 2024 23:25
[2024-05-21] VITALS (12 sets, daily range): BP systolic 115–139; BP diastolic 65–84; PULSE 70–82; RESP 16–20; TEMP 36.8; O2SAT 92–99
[2024-05-21 06:06] LABS: Anion Gap 10 (5-15); Calcium 9.8 mg/dL (8.7-10.4); Carbon Dioxide 23 mmol/L (20-31); Potassium 3.8 mmol/L (3.5-5.1); Sodium 141 mmol/L (136-145)
[2024-05-21 06:12] LABS: BUN/Creatinine Ratio 30.4 (10.0-20.0); Blood Urea Nitrogen 21 mg/dL (9-23)
[2024-05-21 06:17] LABS: Chloride 108 mmol/L (98-107); Glucose 173 mg/dL (74-106)
--- NOTE | 2024-05-21 09:13 | DVHDSRES ---
Discharge Summary Date of Admission Resident Creating Document: ALEK FLEMING RESIDENT May 18, 2024 at 10:25 Date of Discharge: May 21, 2024 Labs/Diagnostic Data: Laboratory Results Test 05/21/24 05:27 05/19/24 05:54 05/18/24 03:37 05/18/24 03:12 Sodium Level 141 mmol/L (136-145) Potassium Level 3.8 mmol/L (3.5-5.1) Chloride Level 108 mmol/L (98-107) Carbon Dioxide Level 23 mmol/L (20-31) Anion Gap 10 (5-15) Blood Urea Nitrogen 21 mg/dL (9-23) Creatinine 0.69 mg/dL (0.550-1.02) Glomerular Filtration Rate Calc 102 mL/min (>90) BUN/Creatinine Ratio 30.4 (10.0-20.0) Serum Glucose 173 mg/dL (74-106) Calcium Level 9.8 mg/dL (8.7-10.4) White Blood Count 6.4 10^3/uL (4.4-10.8) Red Blood Count 4.44 10^6/uL (4.0-5.20) Hemoglobin 12.3 g/dL (12.2-16.2) Hematocrit 37.2 % (36.0-46.0) Mean Corpuscular Volume 83.7 fL (80.0-100.0) Mean Corpuscular Hemoglobin 27.8 pg (28.0-32.0) Mean Corpuscular Hemoglobin Concent 33.2 g/dL (32.0-36.0) Red Cell Distribution Width 13.7 % (11.8-14.3) Platelet Count 253 10^3/uL (140-450) Mean Platelet Volume 8.2 fL (6.9-10.8) Neutrophils (%) (Auto) 51.1 % (37.0-80.0) Lymphocytes (%) (Auto) 35.9 % (10.0-50.0) Monocytes (%) (Auto) 12.0 % (0.0-12.0) Eosinophils (%) (Auto) 0.7 % (0.0-7.0) Basophils (%) (Auto) 0.3 % (0.0-2.0) Neutrophils # (Auto) 3.3 10 ^3/uL (1.6-8.6) Lymphocytes # (Auto) 2.3 10 ^3/uL (0.4-5.4) Monocytes # (Auto) 0.8 10 ^3/uL (0-1.3) Eosinophils # (Auto) 0 10 ^3/uL (0-0.8) Basophils # (Auto) 0 10 ^3/uL (0-0.2) Nucleated Red Blood Cells 0.1 % Total Bilirubin 0.2 mg/dL (0.2-1.0) Aspartate Amino Transferase (AST) 14 U/L (13-40) Alanine Aminotransferase (ALT) 10 U/L (7-40) Alkaline Phosphatase 75 U/L (46-116) Total Protein 6.5 g/dL (5.7-8.2) Albumin 4.1 g/dL (3.2-4.8) Troponin I High Sensitivity 8 ng/L (</=34) B-Type Natriuretic Peptide 38.18 pg/mL (0-100) Influenza Type A Antigen Negative (Negative) Influenza Type B Antigen Negative (Negative) SARS-CoV-2 Antigen (Rapid) Negative (NEGATIVE) Other Laboratory Tests 05/21/24 05:27 05/19/24 05:54 Brief Hx & Hospital Course: This is a 53-year-old female with past medical history of COPD not on home oxygen, hypertension, asthma, cholecystectomy 03/2023 who presents to the ER with a chief complaint of shortness of breaths and low O2 saturation in 70s. She is visiting her daughter and grandkids from [place], when she started to develop shortness of breath which did not relieve by increasing albuterol inhaler treatments. Patient takes Anoro inhaler once a day, albuterol as needed, fluticasone inhaler which she takes on and off, she reports flu-like symptoms including chills, generalized weakness and fatigue, runny nose over the past 7 days which progressed to shortness of breaths for the past 2 days along with cough which was productive with green phlegm. She has a smoked 1 pack a day for the past 30 years, for the past 3 months she is smoking 1 cigarette in a day... On arrival, patient was febrile 100.0, no afebrile. Blood pressure was relatively/78. CBC and BMP were unremarkable. CT angio ruled out lower embolism. COVID and influenza testing was negative. Patient required oxygen supplementation with 2 L NC. She was diagnosed with COPD exacerbation secondary to likely viral pneumonia. IV Solu-Medrol 60 mg b.i.d. was started, which was switched to 40 mg IV b.i.d.. Senior Buyer was consulted recommended Solu- Medrol and nebulized treatment. IV azithromycin was started from 05/19 till 05/21. Patient reported feeling better after IV steroids and azithromycin. Increased aeration on auscultation, no wheezing. Patient reported headache, migraine like, we resumed her home medication sumatriptan. Patient's blood pressure was controlled with lisinopril 20 mg daily. Nicotine patch was provided to the patient. 05/21-patient reports feeling better, she is clinically and hemodynamically stable and is therefore being discharged home with the advised to follow up with primary care physician and discharge clinic within 7 days. He was strongly advised to quit smoking, and against the adverse effects of nicotine on her health. Consults/Reason for consult Senior Buyer consulted with COPD Operations or Procedures ORDERING PHYSICIAN: YANET GIBBS PROCEDURE(s): CTACH - CT ANGIO CHEST CONTRAST REASON: rule pe ORDER NUMBER(s): [id number], ACCESSION NUMBER(s): [id number] Procedure: CT CT ANGIO CHEST CONTRAST Reason for study/Clinical History: rule pe Comparison Study: None available at time of dictation. Exam Date: 05/18/2024 03:29 PM Radiation Dose Information: CT Dose: CTDI volume is 12.91 mGy. Dose-length product is 457.36 mGy*cm Contrast: Type of contrast: Omnipaque 350 Contrast inject: IV 6 mL Contrast wasted:0 TECHNIQUE: After the uneventful administration of intravenous contrast intravenously, CT imaging was performed through the chest. Coronal and sagittal reformations were performed by the technologist. Sagittal and coronal MIP images were reconstructed and submitted for interpretation. FINDINGS: Lower Neck: Visualized portions of the thyroid gland are unremarkable. Aorta and Vasculature: Normal caliber of thoracic aorta. Lymph Nodes: No enlarged intrathoracic lymph nodes. Mediastinum: Heart size is normal. There is no pericardial effusion. The esophagus is unremarkable. Lungs: No focal consolidation, pleural effusion or significant pneumothorax. No suspicious pulmonary nodule or mass. Musculoskeletal: No acute osseous abnormality. Upper abdomen: Gallbladder has been surgically removed. Biliary stent in place. IMPRESSION: 1. No filling defects in the pulmonary artery to suggest pulmonary emboli. No enlargement of the pulmonary artery to suggest pulmonary artery hypertension. 2. No pulmonary infiltrates or pleural effusions. 3. All CT scans at this medical facility are performed using dose modulation techniques as appropriate to a performed exam including the following: Automated exposure control was utilized; adjustment of the MA and/or KV according to patient size; and use of iterative reconstruction technique. HS:Y ATED BY: JORGE CHESTER Jr., DO DICTATED DATE/TIME: 05/18/241610 SIGNED BY: JORGE CHESTER Jr., SIGNED DATE/TIME: 05/18/241610 CC: Condition at Discharge: Stable Final Diagnosis/Problems List Acute COPD exacerbation secondary to viral pneumonia Acute hypoxic respiratory failure secondary to above - resolved Atelectasis Hypertension-controlled Nicotine dependence Migraine headache Discharge Disposition: Home Discharge Instruct/Medications Diet: Cardiac 2g Na,low cholest Activity: No Restrictions, As Tolerated Follow Up/Referral: Follow up with the primary care physician within 7 days Follow up with the discharge clinic appointment during 7 days Medications: Per EMR Discharge Statement: "Patient was advised to return to the ER or call 911 if any headaches, dizziness, shortness of breath, chest pain, abdominal pain, bleeding, fevers, or worsening of medical condition. Patient was counseled about treatment plan, medications, possible side effects, patientverbalized understanding. All questions were answered to the best of my ability. This discharge took greater then 30 minutes in planning, reviewing documentation, counseling the patient, and discussing with other team members." ASSESSMENT ASSESSMENT Assessment Acute COPD exacerbation secondary to viral pneumonia Acute hypoxic respiratory failure secondary to above - resolved Date of Service: May 21, 2024 Billing Provider: LATRICIA MORALES DO Common Visit Codes: [id number]/OBS DISCH DAY >30min ALEK FLEMING RESIDENT May 21, 2024 09:13 LATRICIA MORALES DO May 21, 2024 16:29
[2024-05-21] MEDS: predniSONE 20 MG TAB PO SCH (09:24)
[2024-05-21] MEDS ORDERED: AZIT500T66 PO (11:49)
[2024-05-21] MEDS: LURASIDONE HYDROCHLORIDE PO SCH (12:25)
--- NOTE | 2024-05-21 23:20 | DVHPN2 ---
Progress Note - Dictate Date Seen: May 21, 2024 Medical Necessity Reason Pt with a Central, PICC or Fol: No Subjective Patient seen and examined at bedside. Remains on supplemental oxygen Overnight events reviewed. vital signs Vital Sign Date Time Temp Pulse Resp B/P (MAP) Pulse Ox O2 Delivery O2 Flow Rate FiO2 05/21/24 13:00 97.6 82 17 137/79 (98) 94 97.6 05/21/24 10:04 2.0 05/21/24 10:00 Nasal Cannula 05/21/24 10:00 21 Total Intake and Output 05/20/24 05/20/24 05/21/24 15:00 23:00 07:00 Intake Total 250 ml 375 ml Balance 250 ml 375 ml objective Gen.: Patient lying in bed in no apparent distress. On supplemental oxygen. Head: Normocephalic, atraumatic. Eyes: EOMI/PERRLA. Ears: Normal hearing. Normal anatomy. Neck/trachea: Trachea midline, supple. Nose: Normal external anatomy. Mouth: Moist mucous membranes. Chest: Decreased air entry bilaterally. No wheezing or rhonchi. Cardiovascular: Positive S1, positive S2. Regular rate and rhythm. Abdomen: Positive bowel sounds in all 4 quadrants. Soft, non-tender, non- distended. : Deferred. Rectal: Deferred. Skin: Warm, dry. Intact. Extremities: 2+ radial pulses bilaterally. No lower extremity edema. Neuro: Awake, alert, oriented x3. No gross motor or sensory deficits. Cranial nerves II through XII intact. Gait not assessed. laboratory and microbiology Laboratory Tests 05/21/24 05:27 05/19/24 05:54 Test 05/21/24 05:27 Range/Units Serum Glucose 173 H 74-106 mg/dL Assessment/Plan Impression: Acute exacerbation of COPD Acute hypoxemic respiratory failure Atelectasis Nicotine dependence Events: Remains on supplemental oxygen, 2 LPM NC Taper O2 as tolerated O2 requirements improved. Head of bed elevation Aspiration precautions Continue bronchodilators Continue steroids - transition to PO. Continue antibiotics Incentive spirometry Assess for home O2 requirements prior to discharge. DME for nebulizer and nebulizer supplies. Give script for albuterol-ipratropium nebulizer. Patient is stable for discharge from the pulmonary standpoint. Disposition per hospitalist Labs and imaging reviewed. Rest of plan as noted below. Plan: Supplemental oxygen Titrate to keep O2 sats above 92%. Steroids Bronchodilators Antibiotics Incentive spirometry Smoking cessation education given. Prognosis: Guarded given patient's multiple co-morbidities. Rest of plan per hospitalist and other consultants. Thank you, Dr. Adair, for allowing me to participate in this patient's care. Further recommendations will depend on the patient's clinical course. Please do not hesitate to contact me if you have any questions or concerns. This medical document was created using an electronic medical record system with [employer] dictation system. Although these documentations are being carefully reviewed, there may still be some phonetic and typographical changes. The errors are purely typographical, due to imperfection on the software program, and do not reflect any compromise in the patient's medical care. Plan discussed with: Patient, Other (OLEG Tomlinson) YUNIOR TAN MD May 21, 2024 23:20
== END 2024-05-21 12:58 | disposition home or self-care (01) | DRG 139 ==
LOC: ER 02:38 → EDBD 02:38 → OVERFLOW 10:25 → EAST 14:25
PROVIDERS: ADMIT Internal Medicine; ATTEND Internal Medicine
DX: J12.9 Viral pneumonia, unspecified (principal); J96.21 Acute and chronic respiratory failure with hypoxia; J44.1 Chronic obstructive pulmonary disease with (acute) exacerbation; F20.9 Schizophrenia, unspecified; Z20.822 Contact with and (suspected) exposure to COVID-19; F41.9 Anxiety disorder, unspecified; J98.11 Atelectasis; F17.200 Nicotine dependence, unspecified, uncomplicated; F31.9 Bipolar disorder, unspecified; G43.909 Migraine, unspecified, not intractable, without status migrainosus; I10 Essential (primary) hypertension; Z71.6 Tobacco abuse counseling; Z79.82 Long term (current) use of aspirin; Z79.899 Other long term (current) drug therapy
CPT/HCPCS: 36415; 71045; 71275; 80048; 80053; 83880; 84484; 85025; 87070; 87205; 87426; 87804; 93005; 94640; 96365; 96366; 96367; 99291; G0378; J1100; J7060

== ENCOUNTER 2024-12-17 16:24 | Inpatient (IN) | payer MEDICAID, OTHER ==
[~2024-12-17] VITALS: Ht 162.6 cm; Wt 58.0 kg
[2024-12-17] VITALS (7 sets, daily range): BP systolic 97; BP diastolic 67; PULSE 72–77; RESP 18–28; TEMP 98; O2SAT 94–99
[~2024-12-17 16:24] MED LIST: ASPI81CH59 PO; AZIT500T66 PO; BUPR150T18 PO; DOCU-94 PO; LISI20TA56 PO; LURA60TA PO; SERT-160 PO; TRAZ-227 PO
[2024-12-17] MEDS: SODIUM CHLORIDE 0.9% 1,000 ML IV ONE ×2 (16:45→17:20)
--- NOTE | 2024-12-17 16:47 | ED.PDOC ---
History of Present Illness HPI Comments 54-year-old female brought by paramedics from home because she was having shortness a breath which started 3 hours ago. As per family she continues to smoke cigarettes despite being short of breath. She was using accessory muscles so saturation was in the 70s when paramedics arrived. She was placed on 7 L o xygen which cash to 97% with shallow breathing. Blood pressure on arrival was 150/101 with a heart rate of 110. She does not answer questions. Denies any other symptoms. Chief Complaint: Shortness of Breath Time Seen by MD: 16:34 Reviewed Notes: Nurses Notes, Medications, Allergies Allergies: Coded Allergies: NO KNOWN ALLERGIES (Unverified , 05/18/24) Home Meds Active Scripts Azithromycin (Azithromycin) 500 Mg Tab, 500 MG PO DAILY for 3 Days, #3 TAB Prov:ALEK FLEMING RESIDENT 05/21/24 Reported Medications Docusate Sodium (Colace) 100 Mg Cap, 100 MG PO DAILY, CAP 05/18/24 Lurasidone Hydrochloride (Lurasidone Hydrochloride) 60 Mg Tab, 1 TAB PO DAILY 05/18/24 Aspirin (Aspirin Low Dose) 81 Mg Chw, 1 TAB PO DAILY 05/18/24 Bupropion Hcl (Bupropion Hcl Xl) 150 Mg Tab, 1 TAB PO QAM 05/18/24 Trazodone Hcl (Trazodone Hcl) 50 Mg Tab, 1-2 TAB PO QHSP PRN 05/18/24 Sertraline Hcl (Sertraline Hcl) 100 Mg Tab, 2 TAB PO QAM 05/18/24 Lisinopril (Lisinopril) 20 Mg Tab, 1 TAB PO DAILY 05/18/24 Information Source: Patient, Emergency Med Personnel Mode of Arrival: EMS Severity: Moderate Timing: Hours Duration: Since onset Past Medical History PAST MEDICAL HISTORY: COPD, HTN Surgical History: Denies all surgeries X RAY INSPECTOR History: Denies all X RAY INSPECTOR Hx Family History Family History: Reviewed,noncontributory to illness Social History Smoker: Non-Smoker Alcohol: Denies ETOH Use Drugs: Denies Drug Use Lives In: Home Constitutional: denies: chills, diaphoresis, fatigue, fever, malaise, sweats, weakness, others EENTM: denies: blurred vision, double vision, ear bleeding, ear discharge, ear drainage, ear pain, ear ringing, eye pain, eye redness, hearing loss, mouth pain, mouth swelling, nasal discharge, nose bleeding, nose congestion, nose pain, photophobia, tearing, throat pain, throat swelling, voice changes, others Respiratory: reports: shortness of breath; denies: cough, hemoptysis, ort hopnea, SOB at rest, SOB with excertion, stridor, wheezing, others Cardiovascular: denies: chest pain, dizzy spells, diaphoresis, Dyspnea on exertion, edema, irregular heart beat, left arm pain, lightheadedness, palpitations, PND, syncope, others Gastrointestinal: denies: abdomen distended, abdominal pain, blood streaked bowels, constipated, diarrhea, dysphagia, difficulty swallowing, hematemesis, melena, nausea, poor appetite, poor fluid intake, rectal bleeding, rectal pain, vomiting, others Genitourinary: denies: abnormal vagina bleeding, burning, dyspareunia, dysuria, flank pain, frequency, hematuria, incontinence, pain, , vagina discharge, urgency, others Neurological: denies: dizziness, fainting, headache, left sided numbness, left sided weakness, numbness, paresthesia, pre-existing deficit, right sided numbness, right sided weakness, seizure, speech problems, tingling, tremors, weakness, others Musculoskeletal: denies: back pain, gout, joint pain, joint swelling, muscle pain, muscle stiffness, neck pain, others Integumetry: denies: bruises, change in color, change in hair/nails, dryness, laceration, lesions, lumps, rash, wounds, others Allergic/Immunocompromised: denies: Difficulty Healing, Frequent Infections, Hives, Itching, others Hematologic/Lymphatic: denies: anemia, blood clots, easy bleeding, easy bruising, swollen glands, others Endocrine: denies: excessive hunger, excessive sweating, excessive thirst, excessive urination, flushing, intolerance to cold, intolerance to heat, unexplained weight gain, unexplained weight loss, others Psychiatric: denies: anxiety, bipolar disorder, depression, hopeless, panic disorder, schizophrenia, sleepless, suicidal, others Physical Exam General Appearance: Moderate Distress HEENT: Normal ENT Inspection, Pharynx Normal, TMs Normal Neck: Full Range of Motion, Non-Tender, Normal, Normal Inspection Respiratory: Respiratory Distress, Other (Coarse breath sounds) Cardiovascular: Tachycardia Breast Exam: Deferred Gastrointestinal: No Organomegaly, Non Tender, No Pulsatile Mass, Normal Bowel Sounds, Soft Genitalia: Deferred Pelvic: Deferred Rectal: Deferred Extremities: No calf tenderness, No pedal edema Musculoskeletal : Apperance: Normal Neurologic: Alert, No Motor Deficits, No Sensory Deficits Cerebellar Function: NOT DONE Reflexes: NOT DONE Skin: Normal Color Peripheral Pulses: 3+ Radial (R), 3+ Radial (L) Lymphatic: No Adenopathy Was a procedure done? Was a procedure done?: No Differential Dx Considerations may include: Pneumonia Electrolyte imbalance X-Ray, Labs, Meds, VS Vital Signs Date Time Temp Pulse Resp B/P (MAP) Pulse Ox O2 Delivery O2 Flow Rate FiO2 12/17/24 16:32 98.0 151 28 178/111 100 98.0 12/17/24 16:30 115 Lab Test 12/17/24 17:06 12/17/24 16:55 Range/Units White Blood Count 9.0 4.4-10.8 10^3/uL Red Blood Count 5.12 4.0-5.20 10^6/uL Hemoglobin 14.2 12.2-16.2 g/dL Hematocrit 45.1 36.0-46.0 % Mean Corpuscular Volume 88.1 80.0-100.0 fL Mean Corpuscular Hemoglobin 27.8 L 28.0-32.0 pg Mean Corpuscular Hemoglobin Concent 31.5 L 32.0-36.0 g/dL Red Cell Distribution Width 14.1 11.8-14.3 % Platelet Count 360 140-450 10^3/uL Mean Platelet Volume 8.1 6.9-10.8 fL Neutrophils (%) (Auto) 39.9 37.0-80.0 % Lymphocytes (%) (Auto) 49.5 10.0-50.0 % Monocytes (%) (Auto) 7.3 0.0-12.0 % Eosinophils (%) (Auto) 2.5 0.0-7.0 % Basophils (%) (Auto) 0.8 0.0-2.0 % Neutrophils # (Auto) 3.6 1.6-8.6 10 ^3/uL Lymphocytes # (Auto) 4.5 0.4-5.4 10 ^3/uL Monocytes # (Auto) 0.7 0-1.3 10 ^3/uL Eosinophils # (Auto) 0.2 0-0.8 10 ^3/uL Basophils # (Auto) 0.1 0-0.2 10 ^3/uL Nucleated Red Blood Cells 0.5 % Prothrombin Time Pending Prothrombin Time INR Pending Activated Partial Thromboplast Time Pending Sodium Level Pending Potassium Level Pending Chloride Level Pending Carbon Dioxide Level Pending Anion Gap Pending Blood Urea Nitrogen Pending Creatinine Pending Glomerular Filtration Rate Calc Pending BUN/Creatinine Ratio Pending Serum Glucose Pending Calcium Level Pending Total Bilirubin Pending Aspartate Amino Transferase (AST) Pending Alanine Aminotransferase (ALT) Pending Alkaline Phosphatase Pending Total Protein Pending Albumin Pending Lactic Acid Level Pending Patient appropriate. Placed on oxygen. Blood pressure elevated. Moving extremities. Shallow breathing. Placed a Perez catheter. Possibly need to be intubated. Possible pneumonia. Establish intravenous access. Possible sepsis. Continues to smoke cigarettes. Continue monitoring. Time of 1ST Reevaluation: 16:44 Reevaluation 1ST: Unchanged Patient Education/Counseling: Diagnosis, Treatment, Prognosis Family Education/Counseling: No Family Present SEPSIS Sepsis Screen Date sepsis recognized/suspect: Dec 17, 2024 Time Sepsis recognized/suspect: 1624 Recent Procedure: No On Antibiotic Therapy: No Respiratory Rate >20: Yes Heart Rate >90: Yes Temp<36 C (96.8 F) or >38.3 C: No SBP <90 or MAP <65 mmHG: No New Acute Mental Status Change: Yes Is the patient on CPAP, BIPAP,: No Physician Orders Electrocardigram (12/17/24 16:35) Comprehensive Metabolic Panel (12/17/24 16:41) PTPTT (12/17/24 16:41) Urinalysis (12/17/24 16:41) Chest Portable (12/17/24 16:41) Accucheck (12/17/24 16:41) Blood Culture (12/17/24 16:41) Lactic Acid W/ Reflex Order (12/17/24 18:00) Cefepime 1gm/50ml (Maxipime 1gm/50ml) (12/17/24 17:08) Notify Md If Map <65 Or Bp<90 (12/17/24 16:41) If Map<65 Start Vasopressor (12/17/24 16:41) Sepsis Reassesment After Fluid (12/17/24 17:41) Sodium Chloride 0.9% (12/17/24 16:45) Sodium Chloride 0.9% (12/17/24 16:45) Insert Perez Catheter QSHIFT (12/17/24 16:41) Vital Signs Date Time Temp Pulse Resp B/P (MAP) Pulse Ox O2 Delivery O2 Flow Rate FiO2 12/17/24 16:32 98.0 151 28 178/111 100 98.0 12/17/24 16:30 115 Laboratory Tests Test 12/17/24 16:55 12/17/24 17:06 Lactic Acid Level Pending White Blood Count 9.0 10^3/uL (4.4-10.8) Departure 1 Departure Time of Disposition: 16:46 Impression: Primary Impression: Acute respiratory failure Qualified Codes: J96.01 - Acute respiratory failure with hypoxia Additional Impressions: Pneumonia Qualified Codes: J18.9 - Pneumonia, unspecified organism Sepsis, unspecified organism Qualified Codes: A41.9 - Sepsis, unspecified organism Disposition: ADMITTED INPATIENT Admit to: Med Surg Condition: Guarded Critical Care Note Critical Care Time?: Yes (90 min-critical care time only) Stability Stability form required: No Heart Score Heart Score: Heart Score Response (Comments) Value History Slightly Suspicious 0 EKG Normal 0 Age 45-64 1 Risk Factors 1 or 2 risk factors 1 Troponin Normal limit 0 Total 2 RICARDA PEDRO MD Dec 17, 2024 16:47
[2024-12-17] MEDS: CEFEPIME 1GM/50ML 50 ML IV ONE (17:10)
[2024-12-17 17:18] LABS: Hematocrit 45.1 % (36.0-46.0); Hemoglobin 14.2 g/dL (12.2-16.2); Mean Corpuscular Hemoglobin 27.8 pg (28.0-32.0); Mean Corpuscular Volume 88.1 fL (80.0-100.0); Nucleated Red Blood Cells % 0.5 %
[2024-12-17 17:35] LABS: Albumin 4.2 g/dL (3.2-4.8); Anion Gap 14 (5-15); BUN/Creatinine Ratio 11.2 (10.0-20.0); Blood Urea Nitrogen 10 mg/dL (9-23); Calcium 8.9 mg/dL (8.7-10.4); Potassium 4.1 mmol/L (3.5-5.1); Sodium 143 mmol/L (136-145); Total Protein 6.9 g/dL (5.7-8.2)
[2024-12-17 17:39] LABS: INR 0.93 (0.9-1.15); Partial Thromboplastin Time 21.4 SEC (24.5-34.5); Prothrombin Time 9.9 sec (9.3-11.8)
--- NOTE | 2024-12-17 17:40 | DVH ---
CHEST RADIOGRAPH Indication: sob Technique: Single frontal view of the chest was obtained Comparison: XY CHEST XRAY 1 VIEW on DOS: 05/18/24 FINDINGS: Lines and Tubes: None Lungs: No focal consolidation. Pleura: No effusion. No pneumothorax. Cardiomediastinal contours: Unremarkable Bones: No acute osseous abnormality. IMPRESSION: 1. No acute cardiopulmonary disease.
[2024-12-17 18:05] LABS: Alanine Aminotransferase 70 U/L (7-40); Alkaline Phosphatase 125 U/L (46-116); Bilirubin, Total 0.3 mg/dL (0.2-1.0); Carbon Dioxide 17 mmol/L (20-31); Chloride 112 mmol/L (98-107); Glucose 154 mg/dL (74-106)
[2024-12-17 18:08] LABS: Lactic Acid w/Reflex 6.4 mmol/L (0.4-2.0)
[2024-12-17] MEDS ORDERED: ALBUTEROL SULF 2.5 MG/0.5ML(0.5%) NEB SOLN NEB PRN (19:30)
[2024-12-17] MEDS ORDERED: TEMAZEPAM 15 MG CAP PO PRN (19:30)
[2024-12-17] MEDS ORDERED: ONDANSETRON HCL 4 MG/2 ML VIAL IV PRN (19:30)
[2024-12-17] MEDS ORDERED: IPRATROPIUM BROM 0.5 MG/2.5ML INH SOL NEB PRN (19:30)
[2024-12-17] MEDS ORDERED: NITROGLYCERIN 0.4 MG SL TAB SL PRN (19:30)
[2024-12-17] MEDS: methylPREDNISolone SOD SUCC 125 MG/2 ML VL IV ONE (19:30)
[2024-12-17] MEDS ORDERED: MORPHINE SULFATE 4 MG/ML SYR/VIAL IV PRN (20:45)
--- NOTE | 2024-12-17 22:52 | DVHHP2 ---
History of Present Illness Reason for Visit: Shortness for breath History of Present Illness 54-year-old female presents for evaluation of shortness for breath. Patient endorses a one day history of worsening shortness for breath not being relieved with her inhaler at home. Patient reports mild chest pressure. Denies palpita tions. No other acute complaints reported. Past Medical History Hypertension and COPD Past Surgical History Denies Family History Noncontributory Smoke: <1 pack per day ALCOHOL: none Drugs: None Lives: with Family Review of Systems Review of Systems Review of systems are currently negative otherwise addressed in HPI. Allergies: Coded Allergies: NO KNOWN ALLERGIES (Unverified , 05/18/24) Medications Current Medications Medications Dose Ordered Sig/Rebeca Route Start Time Stop Time Status Last Admin Dose Admin Nitroglycerin 0.4 mg Q5MINP PRN SL 12/17/24 19:30 Morphine Sulfate 2 mg Q30M PRN IV 12/17/24 20:45 Albuterol 2.5 mg Q6HPRN PRN NEB 12/17/24 19:30 Ipratropium [place] 0.5 mg Q6HPRN PRN NEB 12/17/24 19:30 Aspirin 81 mg DAILY PO 12/18/24 10:00 Azithromycin 250 ml @ 125 mls/hr DAILY IV 12/18/24 10:00 Bupropion HCl 75 mg BID@07,19 PO 12/18/24 07:00 Lisinopril 10 mg DAILY PO 12/18/24 10:00 Methylprednisolone Sodium Succinate 40 mg DAILY IV 12/18/24 10:00 Temazepam 15 mg QHSP PRN PO 12/17/24 19:30 Ondansetron HCl 4 mg Q4HP PRN IV 12/17/24 19:30 Acetaminophen 650 mg Q6HP PRN PO 12/17/24 19:30 Exam Vital Signs Vital Signs Date Time Temp Pulse Resp B/P (MAP) Pulse Ox O2 Delivery O2 Flow Rate FiO2 12/17/24 19:16 98.0 77 21 97/67 94 4.0 36 98.0 12/17/24 19:15 Nasal Cannula* Exam Gen: 54-year-old female in mild distress Skin: Warm, dry, normal color and texture, no rash. HEENT: Normocephalic atraumatic, mucous membranes moist and pink. Neck: Cervical and supraclavicular nodes normal without enlargement, trachea is midline, thyroid gland is normal without masses. Pulmonary: Diminished breath sounds bilaterally Cardiac: Regular rate and rhythm. No murmur Abdomen: Soft, nontender, nondistended, bowel sounds present all 4 quadrants, no guarding, no rigidity, no organomegaly. Extremities: No cyanosis, clubbing, no edema Neuro: Cranial nerves II through XII grossly intact, normal affect and speech, no focal motor deficits. Labs/Xrays ORDERING PHYSICIAN: RICARDA PEDRO MD PROCEDURE(s): CXRP - CHEST PORTABLE REASON: sob ORDER NUMBER(s): [id number], ACCESSION NUMBER(s): [id number] CHEST RADIOGRAPH Indication: sob Technique: Single frontal view of the chest was obtained Comparison: XY CHEST XRAY 1 VIEW on DOS: 05/18/24 FINDINGS: Lines and Tubes: None Lungs: No focal consolidation. Pleura: No effusion. No pneumothorax. Cardiomediastinal contours: Unremarkable Bones: No acute osseous abnormality. IMPRESSION: 1. No acute cardiopulmonary disease. Labs Test 12/17/24 18:56 12/17/24 17:06 Range/Units Lactic Acid Level 1.4 0.4-2.0 mmol/L White Blood Count 9.0 4.4-10.8 10^3/uL Red Blood Count 5.12 4.0-5.20 10^6/uL Hemoglobin 14.2 12.2-16.2 g/dL Hematocrit 45.1 36.0-46.0 % Mean Corpuscular Volume 88.1 80.0-100.0 fL Mean Corpuscular Hemoglobin 27.8 L 28.0-32.0 pg Mean Corpuscular Hemoglobin Concent 31.5 L 32.0-36.0 g/dL Red Cell Distribution Width 14.1 11.8-14.3 % Platelet Count 360 140-450 10^3/uL Mean Platelet Volume 8.1 6.9-10.8 fL Neutrophils (%) (Auto) 39.9 37.0-80.0 % Lymphocytes (%) (Auto) 49.5 10.0-50.0 % Monocytes (%) (Auto) 7.3 0.0-12.0 % Eosinophils (%) (Auto) 2.5 0.0-7.0 % Basophils (%) (Auto) 0.8 0.0-2.0 % Neutrophils # (Auto) 3.6 1.6-8.6 10 ^3/uL Lymphocytes # (Auto) 4.5 0.4-5.4 10 ^3/uL Monocytes # (Auto) 0.7 0-1.3 10 ^3/uL Eosinophils # (Auto) 0.2 0-0.8 10 ^3/uL Basophils # (Auto) 0.1 0-0.2 10 ^3/uL Nucleated Red Blood Cells 0.5 % Prothrombin Time 9.9 9.3-11.8 sec Prothrombin Time INR 0.93 0.9-1.15 Activated Partial Thromboplast Time 21.4 L 24.5-34.5 SEC D-Dimer, Quantitative 23.47 H 0.0-0.49 mg/L FEU Sodium Level 143 136-145 mmol/L Potassium Level 4.1 3.5-5.1 mmol/L Chloride Level 112 H 98-107 mmol/L Carbon Dioxide Level 17 L 20-31 mmol/L Anion Gap 14 5-15 Blood Urea Nitrogen 10 9-23 mg/dL Creatinine 0.89 0.550-1.02 mg/dL Glomerular Filtration Rate Calc 76 >90 mL/min BUN/Creatinine Ratio 11.2 10.0-20.0 Serum Glucose 154 H 74-106 mg/dL Calcium Level 8.9 8.7-10.4 mg/dL Total Bilirubin 0.3 0.2-1.0 mg/dL Aspartate Amino Transferase (AST) 154 H 13-40 U/L Alanine Aminotransferase (ALT) 70 H 7-40 U/L Alkaline Phosphatase 125 H 46-116 U/L Total Protein 6.9 5.7-8.2 g/dL Albumin 4.2 3.2-4.8 g/dL SEPSIS Sepsis Screen Date sepsis recognized/suspect: Dec 17, 2024 Time Sepsis recognized/suspect: 1899 Recent Procedure: No On Antibiotic Therapy: No Respiratory Rate >20: Yes Heart Rate >90: No Temp<36 C (96.8 F) or >38.3 C: No SBP <90 or MAP <65 mmHG: No New Acute Mental Status Change: No Is the patient on CPAP, BIPAP,: No Physician Orders Electrocardigram (12/17/24 16:35) Urinalysis (12/17/24 16:41) Chest Portable (12/17/24 16:41) Accucheck (12/17/24 16:41) Blood Culture (12/17/24 16:41) Notify Md If Map <65 Or Bp<90 (12/17/24 16:41) If Map<65 Start Vasopressor (12/17/24 16:41) Sepsis Reassesment After Fluid (12/17/24 17:41) Sodium Chloride 0.9% (12/17/24 16:45) Admit (12/17/24 19:27) Nitroglycerin Sublingual (Ntrostat Subli (12/17/24:30) Stat Ekg For Chest Pain (12/17/24:) Notify Md Of Changes From Base (12/17/24:) Contamination Consultant For 24 Hours (12/17/24:27) Emergency Dysrhythmia Protocol (12/17/24:) Rhythm Strips Once Every Shift (12/17/24:27) Oxygen By Nasal Cannula (12/17/24:27) Albuterol Medneb (Ventolin Medneb) (12/17/24 19:30) Ipratropium Medneb (Atrovent Medneb) (12/17/24 19:30) Aspirin Tablet (12/18/24 10:00) Azithromycin 500mg/ 250ml (Zithromax 50 (12/18/24 10:00) Bupropion Tablet (Wellbutrin Tablet) (12/18/24 07:00) Lisinopril Tablet (Zestril Tablet) (12/18/24 10:00) Basic Metabolic Panel (12/18/24 04:00) Methylprednisolone Sod Succ (Solu Medrol (12/18/24 10:00) Temazepam (Restoril) (12/17/24 19:30) Ondansetron Hcl (Zofran) (12/17/24 19:30) Complete Blood Count (12/18/24 04:00) Cardiac Diet-2gna,Lofat,Lochol (12/18/24 Breakfast) Condition: Fair (12/17/24 19:28) Acetaminophen Tablet (Tylenol Tablet) (12/17/24 19:30) Bedrest With Bathroom Privileg (12/17/24 19:28) Morphine Sulfate Injection (12/17/24 20:45) Hepatitis B Surface Antigen (12/17/24 22:38) Hepatitis C Antibody (12/17/24 22:38) Ct Angio Chest Contrast (12/17/24 22:48) Vital Signs Date Time Temp Pulse Resp B/P (MAP) Pulse Ox O2 Delivery O2 Flow Rate FiO2 12/17/24 19:16 98.0 77 21 97/67 94 4.0 36 98.0 12/17/24 19:15 94 Nasal Cannula* 4 36 12/17/24 19:15 94 Nasal Cannula 4.0 12/17/24 19:00 73 28 97 Nasal Cannula* 2 28 12/17/24 19:00 98.5 73 28 99/55 (70) 97 98.5 12/17/24 18:22 97.1 97.1 12/17/24 18:15 98 Nasal Cannula* 5 40 12/17/24 18:12 77 21 97/67 (77) 97 12/17/24 18:12 72 21 99 Nasal Cannula* 5 40 12/17/24 16:32 98.0 151 28 178/111 100 98.0 12/17/24 16:30 115 Laboratory Tests Test 12/17/24 16:55 12/17/24 17:06 12/17/24 18:56 Lactic Acid Level 6.4 mmol/L (0.4-2.0) *H 1.4 mmol/L (0.4-2.0) White Blood Count 9.0 10^3/uL (4.4-10.8) Medications Medications Dose Ordered Sig/Rebeca Route Start Time Stop Time Status Last Admin Dose Admin Cefepime HCl 50 ml @ 50 mls/hr ONCE ONCE IV 12/17/24 17:08 12/17/24 18:07 DC 12/17/24 17:10 50 MLS/HR Methylprednisolone Sodium Succinate 80 mg ONCE ONCE IV 12/17/24 19:30 12/17/24 20:28 DC 12/17/24 19:30 80 MG Sodium Chloride 1,000 ml @ 150 mls/hr Q6H40M ONCE IV 12/17/24 16:45 12/17/24 23:24 12/17/24 17:20 150 MLS/HR Sodium Chloride 1,000 ml @ 1,000 mls/hr Q1H ONCE IV 12/17/24 16:45 12/17/24 17:44 DC 12/17/24 16:45 1,000 MLS/HR Assessment/Plan Assessment/Plan Assessment Acute on chronic hypoxic respiratory failure COPD exacerbation Active smoker Hypertension Elevated D-dimer Plan Admit the patient to telemetry to the hospitalist Sebastien sandoval Azithromycin CT angiogram pending Resume home medications Continue treatment per orders. Plan discussed with: Patient My Orders Orders - SILVALALITHABRANDO AGACNP Procedure Category Date Status Time Admit ADMIT 12/17/24 Transmitted 19:27 Nitroglycerin PHA 12/17/24 In Process Sublingual (Ntrostat 19:30 Stat Ekg For Chest TAMI 12/17/24 In Process Pain 19:27 Notify Of Changes BANNER 12/17/24 In Process From Base 19:27 Contamination Consultant For BANNER 12/17/24 In Process 24 Hours 19:27 Emergency Dysrhythmia BANNER 12/17/24 In Process Protocol 19:27 Rhythm Strips Once BANNER 12/17/24 In Process Every Shift 19:27 Oxygen By Nasal RT 12/17/24 Transmitted Cannula 19:27 Albuterol Medneb PHA 12/17/24 In Process (Ventolin Medneb) 19:30 Ipratropium Medneb PHA 12/17/24 In Process (Atrovent Medneb) 19:30 Aspirin Tablet PHA 12/18/24 In Process 10:00 Azithromycin 500mg/ PHA 12/18/24 In Process 250ml (Zithromax 50 10:00 Bupropion Tablet PHA 12/18/24 In Process (Wellbutrin Tablet) 07:00 Lisinopril Tablet PHA 12/18/24 In Process (Zestril Tablet) 10:00 Basic Metabolic Panel LAB 12/18/24 Verified 04:00 Methylprednisolone PHA 12/18/24 In Process Sod Succ (Solu Medrol 10:00 Temazepam (Restoril) PHA 12/17/24 In Process 19:30 Ondansetron Hcl PHA 12/17/24 In Process (Zofran) 19:30 Complete Blood Count LAB 12/18/24 Verified 04:00 Cardiac DIET 12/18/24 Transmitted Diet-2gna,Lofat,Lochol Breakfast Condition: Fair TAMI 10/15/25 In Process 19:28 Acetaminophen Tablet PHA 12/17/24 In Process (Tylenol Tablet) 19:30 Bedrest With Bathroom TAMI 12/17/24 In Process Privileg 19:28 Morphine Sulfate PHA 12/17/24 In Process Injection 20:45 Hepatitis B Surface LAB 12/17/24 Logged Antigen 22:38 Hepatitis C Antibody LAB 12/17/24 Logged 22:[address] 12/17/24 Verified Contrast 22:48 Date of Service: Dec 17, 2024 Billing Provider: LALITHA SILVA Common Visit Codes: [id number] INP/OBS CARE (HIGH) LALITHA SILVA Dec 17, 2024 22:52
[2024-12-17] MEDS: IOHEXOL 350 MG/ML 100ML IJ ONE (23:55)
[2024-12-18] VITALS (12 sets, daily range): BP systolic 113–156; BP diastolic 67–97; PULSE 75–99; RESP 16–22; TEMP 97.8–98.7; O2SAT 94–99
--- NOTE | 2024-12-18 00:29 | DVH ---
CTA Chest with intravenous contrast INDICATION: r/o PE, chest pain. COMPARISON: XY CHEST PORTABLE on DOS: 12/17/24, CT CT ANGIO CHEST CONTRAST on DOS: 05/18/24 TECHNIQUE: Multidetector spiral CTA of the chest was performed of the chest with intravenous contrast . PULMONARY ANGIOGRAPHY PROTOCOL was utilized using a bolus-tracking technique centered on the main p ulmonary artery. Axial, coronal and sagittal multiplanar and MIP reformats were performed. Radiation Dose : 1. Chest: CTDI volume is 8.88 mGy. Dose-length product is 450.78 mGy*cm The dose indicators for CT are the volume Computed Tomography (CT) Dose Index (CTDIvol) and the Dose Length Product (DLP), and are measured in units of mGy and mGy-cm, respectively. These indicators are not patient dose, but values generated from the CT scanner acquisition factors. The report includes radiation exposure data for exposures received during this examination. Findings: Pulmonary artery: No pulmonary embolism Lower neck: Normal thyroid. Lungs: No focal consolidation, pleural effusion or pneumothorax. Heart/Vascular Structures: Normal heart size. No pericardial effusion. Lymph Nodes: No adenopathy Pleura: No pleural effusion or significant pneumothorax. Musculoskeletal: No acute osseous abnormality. Soft tissues: Normal. Upper abdomen: Previous cholecystectomy. IMPRESSION: No pulmonary embolism. No acute thoracic finding.
[2024-12-18 06:43] LABS: Hematocrit 42.4 % (36.0-46.0); Hemoglobin 13.8 g/dL (12.2-16.2); Mean Corpuscular Hemoglobin 27.6 pg (28.0-32.0); Mean Corpuscular Volume 84.7 fL (80.0-100.0); Nucleated Red Blood Cells % 0.0 %
[2024-12-18 06:48] LABS: Potassium 4.6 mmol/L (3.5-5.1); Sodium 141 mmol/L (136-145)
[2024-12-18 06:49] LABS: Anion Gap 8 (5-15); Carbon Dioxide 23 mmol/L (20-31)
[2024-12-18 06:50] LABS: Calcium 9.1 mg/dL (8.7-10.4)
[2024-12-18 06:54] LABS: BUN/Creatinine Ratio 14.3 (10.0-20.0); Blood Urea Nitrogen 10 mg/dL (9-23)
[2024-12-18 06:55] LABS: Chloride 110 mmol/L (98-107); Glucose 122 mg/dL (74-106)
[2024-12-18] MEDS: AZITHROMYCIN 500MG/ 250ML 250 ML IV SCH (08:58)
[2024-12-18] MEDS: methylPREDNISolone SOD SUCC 40 MG/ML VL IV SCH ×2 (08:59→21:31)
[2024-12-18] MEDS: LISINOPRIL 5 MG TAB PO SCH (09:11)
[2024-12-18] MEDS: ACETAMINOPHEN 325 MG TAB PO PRN (09:11)
[2024-12-18 11:30] LABS: COVID19 ANTIGEN SOFIA FIA NEGATIVE (NEGATIVE)
--- NOTE | 2024-12-18 12:46 | DVHPNRES ---
Progress Note Date Seen: Dec 18, 2024 Resident Creating Document: YULIANA URBAN Medical Necessity Reason Pt with a Central, PICC or Fol: No Subjective Review of Systems Patient is a 54-year-old female with past medical history of hypertension, COPD, migraine and anxiety, presented to [facility] ED with complaint of worsening shortness for breath. The patient reported that yesterday at approximately 4:30 p.m., she experienced sudden onset dyspnea that was not relieved after using her inhaler three times. She subsequently lost consciousness and awoke in the emergency department. As per family she continues to smoke cigarettes despite being short of breath. She was using accessory muscles so saturation was in the 70s when paramedics arrived. She was placed on 7 L oxygen which cash to 97% with shallow breathing. Blood pressure on arrival was 150/101 with a heart rate of 110. Patient reports mild chest pressure but denies palpitations. On morning assessment, the patient was awake and alert 4, on 2L nasal cannula, and showed no signs of distress, shortness of breath, or pain Past surgical history: Cholecystectomy Past Hospitalization: None Family history: Mother: Bladder cancer, heart attack. Father: Stroke Social & Personal history: 40 pack years. Drinking whole more than 30 years. Denies any recreational drug but using cocaine, methamphetamine with in her 20s. Allergies: none Patient seen and examined at bedside. Patient is alert and oriented to time, place person and responding to all questions. General: Headache Eyes: No Pain, No Vision change, No Conjunctivae inflammation, No Eyelid inflammation, No Other, No Redness ENT: No Ear pain, No Ear discharge, No Nose pain, No Nose discharge, No Nose congestion, No Mouth pain, No Mouth swelling, No Throat pain, No Throat swelling, No Other Cardiovascular: No Chest Pain, No Palpitations, No Orthopnea, No Paroxysmal No Dyspnea, No Edema, No Lt Headedness, No Other Respiratory: No Cough, No Dry, Shortness of breath, SOB with exertion, No Wheezing, No Hemoptysis, No Pleuritic Pain, No Sputum, No Other Gastrointestinal: No Nausea, No Vomiting, No Abdominal Pain, No Diarrhea, No Constipation, No Melena, No Hematochezia, No Other Genitourinary: No Dysuria, No Frequency, No Incontinence, No Hematuria, No Retention, No Other Musculoskeletal: No other, No neck pain, No shoulder pain, No arm pain, No back pain, No hand pain, No leg pain, No foot pain Skin: No Rash, No Lesions, No Jaundice, No Bruising, No Other Objective vital signs Vital Sign Date Time Temp Pulse Resp B/P (MAP) Pulse Ox O2 Delivery O2 Flow Rate FiO2 12/18/24 10:00 94 Nasal Cannula 2.0 12/18/24 10:00 28 12/18/24 09:11 144/89 12/18/24 08:53 98.2 78 16 98.2 Total Intake and Output 12/17/24 12/17/24 12/18/24 15:00 23:00 07:00 Intake Total 700 ml Balance 700 ml medications Current Medications Medications Dose Ordered Sig/Rebeca Route Start Time Stop Time Status Last Admin Dose Admin Nitroglycerin 0.4 mg Q5MINP PRN SL 12/17/24 19:30 Morphine Sulfate 2 mg Q30M PRN IV 12/17/24 20:45 Albuterol 2.5 mg Q6HPRN PRN NEB 12/17/24 19:30 Ipratropium [place] 0.5 mg Q6HPRN PRN NEB 12/17/24 19:30 Aspirin 81 mg DAILY PO 12/18/24 10:00 12/18/24 08:58 81 MG Azithromycin 250 ml @ 125 mls/hr DAILY IV 12/18/24 10:00 12/18/24 08:58 125 MLS/HR Bupropion HCl 75 mg BID@07,19 PO 12/18/24 07:00 12/18/24 06:35 75 MG Lisinopril 10 mg DAILY PO 12/18/24 10:00 12/18/24 09:11 10 MG Temazepam 15 mg QHSP PRN PO 12/17/24 19:30 Ondansetron HCl 4 mg Q4HP PRN IV 12/17/24 19:30 Acetaminophen 650 mg Q6HP PRN PO 12/17/24 19:30 12/18/24 09:11 650 MG Methylprednisolone Sodium Succinate 40 mg BID IV 12/18/24 22:00 Examination Gen: 54-year-old female in mild distress Skin: Warm, dry, normal color and texture, no rash. HEENT: Normocephalic atraumatic, mucous membranes moist and pink. Neck: Cervical and supraclavicular nodes normal without enlargement, trachea is midline, thyroid gland is normal without masses. Pulmonary: Diminished breath sounds bilaterally Cardiac: Regular rate and rhythm. No murmur Abdomen: Soft, nontender, nondistended, bowel sounds present all 4 quadrants, no guarding, no rigidity, no organomegaly. Extremities: No cyanosis, clubbing, no edema. Left Elbow deformity Neuro: Cranial nerves II through XII grossly intact, normal affect and speech, no focal motor deficits. laboratory and microbiology Laboratory Tests 12/18/24 05:42 Test 12/18/24 05:42 Range/Units Serum Glucose 122 H 74-106 mg/dL Labs and/or images reviewed: Labs reviewed by me, Image(s) reviewed by me Problem List/Assessment/Plan Problem List/Assessment/Plan # Acute on chronic hypoxic respiratory failure # COPD exacerbation # Active smoker EKG: Sinus tachycardia. Nonspecific repol abnormality, diffuse leads. Baseline wander in lead(s) I,II,aVR,aVL Azithromycin 250 ml Solu Medrol 40 mg Albuterol 2.5 mg Ipratropium 0.5 mg Tylenol 650 mg # Anxiety - Temazepam 15 mg - Bupropion 75 mg # Migraine - Imaitrex 0.5 mg # Ruled out DVT Extremity Venous study: No evidence of deep vein thrombosis # Ruled out PE # Elevated D-dimer CT Angiography: No pulmonary embolism. No acute thoracic finding. PUD prophylaxis: protonix 40mg DVT prophylaxis: Lovenox 40mg Goals of care: Full code, discussed for >16 minutes on 12/18/24 Plan discussed with patient Plan discussed with Dr. Welch Plan discussed with: Patient, Other (RN) Date of Service: Dec 18, 2024 Billing Provider: RONALD WELCH MD Common Visit Codes: 57801-[id number] INP/OBS CARE(HIGH) YULIANA URBAN RESIDENT Dec 18, 2024 12:46 RONALD WELCH MD Dec 18, 2024 23:14
[2024-12-18] MEDS ORDERED: hydrOXYzine 25 MG TAB or CAP PO PRN (13:00)
--- NOTE | 2024-12-18 14:01 | ECG ---
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
--- NOTE | 2024-12-18 18:23 | DVH ---
BILATERAL LOWER EXTREMITY VENOUS DUPLEX REASON FOR EXAMINATION: lower ext swelling COMPARISON: None TECHNIQUE: Using real-time freeze-frame technique with a high-frequency transducer, multiple longitu dinal and transverse sections were obtained. Simultaneous color flow and spectral Doppler imaging wa s performed. The veins from the popliteal fossa to the groin were evaluated. FINDINGS: There is good visualization of the deep venous system with no intraluminal filling defects identified. Normal venous compressibility is seen and there is flow augmentation. Color flow Doppler imaging is unremarkable. IMPRESSION: NO EVIDENCE OF DEEP VENOUS THROMBOSIS.
[2024-12-18] MEDS: IPRATROPIUM BROM 0.5 MG/2.5ML INH SOL NEB SCH (19:07)
[2024-12-18] MEDS: ALBUTEROL SULF 2.5 MG/0.5ML(0.5%) NEB SOLN NEB SCH (19:08)
[2024-12-19] VITALS (8 sets, daily range): BP systolic 138–151; BP diastolic 77–92; PULSE 66–81; RESP 16–20; TEMP 98.2–98.5; O2SAT 93–99
[2024-12-19 06:45] LABS: Hematocrit 41.9 % (36.0-46.0); Hemoglobin 13.9 g/dL (12.2-16.2); Mean Corpuscular Hemoglobin 27.9 pg (28.0-32.0); Mean Corpuscular Volume 84.2 fL (80.0-100.0); Nucleated Red Blood Cells % 0.0 %
[2024-12-19 06:55] LABS: Anion Gap 9 (5-15); Calcium 9.5 mg/dL (8.7-10.4); Carbon Dioxide 24 mmol/L (20-31); Chloride 109 mmol/L (98-107); Potassium 4.3 mmol/L (3.5-5.1); Sodium 142 mmol/L (136-145)
[2024-12-19 07:01] LABS: BUN/Creatinine Ratio 26.2 (10.0-20.0); Blood Urea Nitrogen 17 mg/dL (9-23)
[2024-12-19 07:07] LABS: Glucose 139 mg/dL (74-106)
[2024-12-19 10:24] LABS: Hepatitis C Antibody Negative (Negative)
[2024-12-19 10:29] LABS: Hepatitis B Surface Antigen Negative (Negative)
[2024-12-19 10:30] LABS: Alkaline Phosphatase 94 U/L (46-116); Total Protein 6.8 g/dL (5.7-8.2)
[2024-12-19 10:31] LABS: Albumin 4.1 g/dL (3.2-4.8)
[2024-12-19 10:33] LABS: Alanine Aminotransferase 45 U/L (7-40); Bilirubin, Direct < 0.1 mg/dL (<0.3); Bilirubin, Total 0.2 mg/dL (0.2-1.0)
[2024-12-19] MEDS: PANTOPRAZOLE 40 MG/10 ML VIAL INJ IV ONE (11:45)
[2024-12-19] MEDS: SUCRALFATE 1 GM/10 ML ORAL SUSP PO ONE (11:45)
--- NOTE | 2024-12-19 12:02 | DVHDSRES ---
Discharge Summary Date of Admission Resident Creating Document: YULIANA URBAN RESIDENT Dec 17, 2024 at 19:27 Date of Discharge: Dec 19, 2024 Admitting Diagnosis shortness of breath likely due to COPD exacerbation Labs/Diagnostic Data: Laboratory Results Test 12/19/24 05:34 12/18/24 10:55 12/18/24 05:42 12/17/24 18:56 White Blood Count 10.1 10^3/uL (4.4-10.8) Red Blood Count 4.97 10^6/uL (4.0-5.20) Hemoglobin 13.9 g/dL (12.2-16.2) Hematocrit 41.9 % (36.0-46.0) Mean Corpuscular Volume 84.2 fL (80.0-100.0) Mean Corpuscular Hemoglobin 27.9 pg (28.0-32.0) Mean Corpuscular Hemoglobin Concent 33.1 g/dL (32.0-36.0) Red Cell Distribution Width 13.7 % (11.8-14.3) Platelet Count 408 10^3/uL (140-450) Mean Platelet Volume 8.8 fL (6.9-10.8) Neutrophils (%) (Auto) 78.7 % (37.0-80.0) Lymphocytes (%) (Auto) 16.6 % (10.0-50.0) Monocytes (%) (Auto) 4.3 % (0.0-12.0) Eosinophils (%) (Auto) 0.0 % (0.0-7.0) Basophils (%) (Auto) 0.4 % (0.0-2.0) Neutrophils # (Auto) 8.0 10 ^3/uL (1.6-8.6) Lymphocytes # (Auto) 1.7 10 ^3/uL (0.4-5.4) Monocytes # (Auto) 0.4 10 ^3/uL (0-1.3) Eosinophils # (Auto) 0 10 ^3/uL (0-0.8) Basophils # (Auto) 0 10 ^3/uL (0-0.2) Nucleated Red Blood Cells 0.0 % Sodium Level 142 mmol/L (136-145) Potassium Level 4.3 mmol/L (3.5-5.1) Chloride Level 109 mmol/L (98-107) Carbon Dioxide Level 24 mmol/L (20-31) Anion Gap 9 (5-15) Blood Urea Nitrogen 17 mg/dL (9-23) Creatinine 0.65 mg/dL (0.550-1.02) Glomerular Filtration Rate Calc 103 mL/min (>90) BUN/Creatinine Ratio 26.2 (10.0-20.0) Serum Glucose 139 mg/dL (74-106) Calcium Level 9.5 mg/dL (8.7-10.4) Total Bilirubin 0.2 mg/dL (0.2-1.0) Direct Bilirubin < 0.1 mg/dL (<0.3) Aspartate Amino Transferase (AST) 33 U/L (13-40) Alanine Aminotransferase (ALT) 45 U/L (7-40) Alkaline Phosphatase 94 U/L (46-116) Total Protein 6.8 g/dL (5.7-8.2) Albumin 4.1 g/dL (3.2-4.8) Influenza Type A Antigen Negative (Negative) Influenza Type B Antigen Negative (Negative) SARS-CoV-2 Antigen (Rapid) Negative (NEGATIVE) Hepatitis B Surface Antigen Negative (Negative) Hepatitis C Antibody Negative (Negative) Lactic Acid Level 1.4 mmol/L (0.4-2.0) Test 12/17/24 17:06 Prothrombin Time 9.9 sec (9.3-11.8) Prothrombin Time INR 0.93 (0.9-1.15) Activated Partial Thromboplast Time 21.4 SEC (24.5-34.5) D-Dimer, Quantitative 23.47 mg/L FEU (0.0-0.49) Troponin I High Sensitivity 17 ng/L (</=34) Other Laboratory Tests 12/19/24 05:34 Brief Hx & Hospital Course: Ms. Abad is a 54-year-old female with a history of hypertension, COPD, migraine, and anxiety who presented to [facility] with acute worsening shortness of breath. The patient reported sudden onset dyspnea around 4:30 p.m. the previous day, which was unrelieved by multiple inhaler uses and led to a brief loss of consciousness. She was found by paramedics with oxygen saturation in the 70s and was placed on 7 L oxygen, improving her saturation to 97%. On arrival, she was hypertensive with a blood pressure of 150/101 and a heart rate of 110. She reported mild chest pressure but denied palpitations. Initial evaluation included a chest X-ray showing no acute cardiopulmonary disease, and an EKG revealing sinus tachycardia with nonspecific repolarization abnormalities. CTA of the chest ruled out pulmonary embolism and showed no acute thoracic findings. Bilateral lower extremity venous duplex ultrasound showed no evidence of deep vein thrombosis. On assessment, the patient was alert and oriented, breathing comfortably on 2 L nasal cannula, and without signs of distress. Physical examination revealed diminished breath sounds bilaterally, a soft and non-tender abdomen, no peripheral edema, and a left elbow deformity. Neurologically, she was intact with no focal deficits. Laboratory studies showed an elevated D-dimer, prompting imaging to rule out PE and DVT, both of which were negative. She was diagnosed with acute on chronic hypoxic respiratory failure secondary to a COPD exacerbation. Management included IV Solu-Medrol 40 mg, Azithromycin 250 mg, Albuterol 2.5 mg, and Ipratropium 0.5 mg. For migraine, she received Imitrex 0.5 mg, and for anxiety, she was treated with Temazepam 15 mg and Bupropion 75 mg. Supportive care included Tylenol 650 mg for pain, Protonix 40 mg IV daily for PUD prophylaxis, and Lovenox 40 mg for DVT prophylaxis. The patient remains under observation with improvement in respiratory status and no signs of acute cardiopulmonary or thromboembolic disease. She was discharged in stable condition with the following medications: Albuterol 90 mcg inhaler to be used four times daily as needed for 60 days, Azithromycin 250 mg orally once daily for 5 days, Yevmbwnqbao-Znuwpgmlityz-Mxfemxmjgk inhaler, Pantoprazole 40 mg orally once daily, and Sucralfate (Carafate) 1 gram/10 mL orally twice daily for 14 days. Azithromycin 500 mg orally once daily for 3 days was discontinued. Exam General: Headache Eyes: No Pain, No Vision change, No Conjunctivae inflammation, No Eyelid inflammation, No Other, No Redness ENT: No Ear pain, No Ear discharge, No Nose pain, No Nose discharge, No Nose congestion, No Mouth pain, No Mouth swelling, No Throat pain, No Throat swelling, No Other Cardiovascular: No Chest Pain, No Palpitations, No Orthopnea, No Paroxysmal No Dyspnea, No Edema, No Lt Headedness, No Other Respiratory: No Cough, No Dry, Shortness of breath, SOB with exertion, No Wheezing, No Hemoptysis, No Pleuritic Pain, No Sputum, No Other Gastrointestinal: No Nausea, No Vomiting, No Abdominal Pain, No Diarrhea, No Constipation, No Melena, No Hematochezia, No Other Genitourinary: No Dysuria, No Frequency, No Incontinence, No Hematuria, No Retention, No Other Musculoskeletal: No other, No neck pain, No shoulder pain, No arm pain, No back pain, No hand pain, No leg pain, No foot pain Skin: No Rash, No Lesions, No Jaundice, No Bruising, No Other Operations or Procedures PATIENT: ISIAH ABAD ACCT: [id number] UNIT: [id number] : 1970 LOC: [facility] ROOM / BED: [facility]6T / B AGE / SEX: 54 / F ADM STATUS: ADM IN SERVICE [id number] ORDERING PHYSICIAN: JUN ROSE RESIDENT PROCEDURE(s): BLDVT - BiLat Lower DVT REASON: lower ext swelling ORDER NUMBER(s): [id number], ACCESSION NUMBER(s): [id number] BILATERAL LOWER EXTREMITY VENOUS DUPLEX REASON FOR EXAMINATION: lower ext swelling COMPARISON: None TECHNIQUE: Using real-time freeze-frame technique with a high-frequency transducer, multiple longitudinal and transverse sections were obtained. Simultaneous color flow and spectral Doppler imaging was performed. The veins from the popliteal fossa to the groin were evaluated. FINDINGS: There is good visualization of the deep venous system with no intraluminal filling defects identified. Normal venous compressibility is seen and there is flow augmentation. Color flow Doppler imaging is unremarkable. IMPRESSION: NO EVIDENCE OF DEEP VENOUS THROMBOSIS. PATIENT: ISIAH ABAD ACCT: [id number] UNIT: [id number] : 1970 LOC: [facility] ROOM / BED: 0246T / B AGE / SEX: 54 / F ADM STATUS: ADM IN SERVICE 2248 ORDERING PHYSICIAN: LALITHA SILVA PROCEDURE(s): CTACH - CT ANGIO CHEST CONTRAST REASON: r/o PE ORDER NUMBER(s): [id number], ACCESSION NUMBER(s): [id number] CTA Chest with intravenous contrast INDICATION: r/o PE, chest pain. COMPARISON: XY CHEST PORTABLE on DOS: 12/17/24, CT CT ANGIO CHEST CONTRAST on DOS: 05/18/24 TECHNIQUE: Multidetector spiral CTA of the chest was performed of the chest with intravenous contrast. PULMONARY ANGIOGRAPHY PROTOCOL was utilized using a bolus- tracking technique centered on the main pulmonary artery. Axial, coronal and sagittal multiplanar and MIP reformats were performed. Radiation Dose : 1. Chest: CTDI volume is 8.88 mGy. Dose-length product is 450.78 mGy*cm The dose indicators for CT are the volume Computed Tomography (CT) Dose Index (CTDIvol) and the Dose Length Product (DLP), and are measured in units of mGy and mGy-cm, respectively. These indicators are not patient dose, but values generated from the CT scanner acquisition factors. The report includes radiation exposure data for exposures received during this examination. Findings: Pulmonary artery: No pulmonary embolism Lower neck: Normal thyroid. Lungs: No focal consolidation, pleural effusion or pneumothorax. Heart/Vascular Structures: Normal heart size. No pericardial effusion. Lymph Nodes: No adenopathy Pleura: No pleural effusion or significant pneumothorax. Musculoskeletal: No acute osseous abnormality. Soft tissues: Normal. Upper abdomen: Previous cholecystectomy. IMPRESSION: No pulmonary embolism. No acute thoracic finding. - PATIENT: ISIAH ABAD ACCT: [id number] UNIT: [id number] : 1970 LOC: ER ROOM / BED: / AGE / SEX: 54 / F ADM STATUS: REG ER SERVICE 1641 ORDERING PHYSICIAN: RICARDA PEDRO MD PROCEDURE(s): CXRP - CHEST PORTABLE REASON: sob ORDER NUMBER(s): [id number], ACCESSION NUMBER(s): [id number] CHEST RADIOGRAPH Indication: sob Technique: Single frontal view of the chest was obtained Comparison: XY CHEST XRAY 1 VIEW on DOS: 05/18/24 FINDINGS: Lines and Tubes: None Lungs: No focal consolidation. Pleura: No effusion. No pneumothorax. Cardiomediastinal contours: Unremarkable Bones: No acute osseous abnormality. IMPRESSION: 1. No acute cardiopulmonary disease. 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 Condition at Discharge: Stable Final Diagnosis/Problems List # Acute on chronic hypoxic respiratory failure # COPD exacerbation # Active smoker # Anxiety # Migraine # Ruled out DVT # Ruled out PE Discharge Disposition: Home (RN) Discharge Instruct/Medications Diet: Regular Activity: No Restrictions, As Tolerated Follow Up/Referral: Follow up with PCP within 1 week Medications: continue home medications Scheduled Albuterol Sulfate (Ventolin Mdi), 90 MCG IN QIDPRN Aspirin (Aspirin Low Dose), 1 TAB PO DAILY, (Reported) Azithromycin (Azithromycin), 250 MG PO DAILY Bupropion Hcl (Bupropion Hcl Xl), 1 TAB PO QAM, (Reported) Docusate Sodium (Colace), 100 MG PO DAILY, (Reported) Imgoelpfhxo-Hadofaogdncn-Zqmob (Trelegy Ellipta 100-62.5-25 Mcg/INH), 1 PUFF IN DAILY Lisinopril (Lisinopril), 0.5 TAB PO DAILY Lurasidone Hydrochloride (Lurasidone Hydrochloride), 1 TAB PO DAILY, (Reported) Pantoprazole Sodium Sesquihydr (Protonix), 40 MG PO DAILY Prednisone (Prednisone), 40 MG PO DAILY Sertraline Hcl (Sertraline Hcl), 2 TAB PO QAM, (Reported) Sucralfate (Carafate), 10 ML PO BID Scheduled PRN Trazodone Hcl (Trazodone Hcl), 1-2 TAB PO QHSP PRN, (Reported) Discontinued Medications Azithromycin (Azithromycin), 500 MG PO DAILY Discharge Statement: "Patient was advised to return to the ER or call 911 if any headaches, dizziness, shortness of breath, chest pain, abdominal pain, bleeding, fevers, or worsening of medical condition. Patient was counseled about treatment plan, medications, possible side effects, patientverbalized understanding. All questions were answered to the best of my ability. This discharge took greater then 30 minutes in planning, reviewing documentation, counseling the patient, and discussing with other team members." ASSESSMENT ASSESSMENT Assessment # Acute on chronic hypoxic respiratory failure # COPD exacerbation # Active smoker # Anxiety # Migraine # Ruled out DVT # Ruled out PE Date of Service: Dec 19, 2024 Billing Provider: RONALD CUI MD Common Visit Codes: 30298-SDG/OBS DISCH DAY >30min YULIANA URBAN RESIDENT Dec 19, 2024 12:02 RONALD CUI MD Dec 22, 2024 00:48
[2024-12-19] MEDS ORDERED: SUCR1SUS5 PO (12:40)
[2024-12-19] MEDS ORDERED: ALBUAER3 IN (12:40)
[2024-12-19] MEDS ORDERED: LISI20TA56 PO (12:40)
[2024-12-19] MEDS ORDERED: AZIT-43 PO (12:40)
[2024-12-19] MEDS ORDERED: PRED20TA2 PO (12:40)
[2024-12-19] MEDS ORDERED: FLUT1AER3 IN (12:40)
[2024-12-19] MEDS ORDERED: PANT40TA2 PO (12:40)
== END 2024-12-19 14:30 | disposition home or self-care (01) | DRG 133 ==
LOC: EDBD 16:24 → ER 16:24 → OVERFLOW 19:27 → TELE-EAST 21:40
PROVIDERS: ADMIT Internal Medicine; ATTEND Internal Medicine
DX: J96.21 Acute and chronic respiratory failure with hypoxia (principal); E87.20 Acidosis, unspecified; J44.1 Chronic obstructive pulmonary disease with (acute) exacerbation; I10 Essential (primary) hypertension; R79.89 Other specified abnormal findings of blood chemistry; F17.210 Nicotine dependence, cigarettes, uncomplicated; Z20.822 Contact with and (suspected) exposure to COVID-19; F41.9 Anxiety disorder, unspecified; G43.909 Migraine, unspecified, not intractable, without status migrainosus; Z79.82 Long term (current) use of aspirin; Z79.899 Other long term (current) drug therapy; Z90.49 Acquired absence of other specified parts of digestive tract
CPT/HCPCS: 36415; 71045; 71275; 80048; 80053; 80076; 83605; 84484; 85025; 85379; 85610; 85730; 86803; 87040; 87340; 87426; 87804; 93005; 93970; 94640; 96365; 99291; 99292; G0378; J2470

== ENCOUNTER 2025-02-17 22:38 | Inpatient (IN) | payer MEDICAID, OTHER ==
[~2025-02-17] VITALS: Ht 144.8 cm; Wt 63.3 kg
[~2025-02-17 22:38] MED LIST changes: +ALBUAER3 IN; +AZIT-43 PO; -AZIT500T66 PO; +FLUT1AER3 IN; +PANT40TA2 PO; +PRED20TA2 PO; +SUCR1SUS5 PO
--- NOTE | 2025-02-17 22:59 | ED.PDOC ---
SOB-HPI HPI Comments HPI: Initial Vitals BP: HR: 110 RR: O2: Temp: Past Medical History: Past Surgical History: Social History: Medications: Allergies: NKA HPI: Poor Historian. 54-year-old female brought in by ambulance from home for evaluation of respiratory distress. Onset of shortness of breath was 1 hour ago. Since yesterday patient has been having fever and nonspecific cough. Per EMS initial pulse ox was 92% on room air. Patient was placed on supplemental oxygen and given a DuoNeb treatment which improved her O2 sats. Initial vital signs was blood pressure 172/100 heart rate 108. Patient does not use oxygen at home. Past Medical History: COPD/asthma, hypertension, GERD Past Surgical History: REVIEW OF SYSTEMS: CONSTITUTIONAL: Denies acute: diaphoresis, chills, generalized weakness. HEAD: Denies acute: headache, photophobia Eyes: Denies acute: Double vision, vision loss, eye pain, eye discharge. EARS: Denies acute: tinnitus, hearing loss, ear discharge, ear pain, THROAT: Denies acute: sore throat, swelling, difficulty swallowing , pain with swallowing, change in voice. NECK: Denies acute: neck pain, neck swelling, stiff neck. HEART: Denies acute : chest pain, palpitations, LUNGS: Denies acute: hemoptysis ABDOMEN: Denies acute: abdominal pain, Nausea, Vomiting, diarrhea, melena , hematemesis, hematochezia SKIN: Denies acute: rash, redness, lesions, itchiness. EXTREMITIES: Denies acute: calf pain, numbness, tingling, weakness, denies pain in extremity. Denies acute: Low back pain. Neuro: Denies acute: focal neurological deficit, motor or sensory focal neurological deficit, tremors, seizure like activity, confusion, dizziness, change in mental status, loss of bowel or bladder function, cauda equina like symptoms. : Denies acute: dysuria, hematuria, flank pain, increase in urinary frequency. PSYCH: Denies acute: hallucination, suicidal ideation, homicidal ideation. FEMALE: Denies acute: abnormal vaginal bleeding, foul odor, unusual discharge. PHYSICAL EXAM: General: ---moderate-----acute distress, awake and alert. Head: normocephalic, atraumatic. No raccoon's eyes, no moore sign. Neck: supple, trachea is midline, no swelling. Throat: Normal phonation. Eyes:, no erythema, no purulent discharge, no proptosis, no icterus. Heart: regular tachycardic, no significant murmur appreciated. Lungs: [id number] respiratory distress, Bilateral wheezing, no rhonchi, no crackles. No stridors Abdomen: non tender to palpation, non distended, soft, no guarding, no rebound, + bowel sounds. Neuro: Awake, Alert, oriented to name, self, situation, follows commands GCS=15. Speech is normal. Skin: no petechia, no purpura, no cyanosis, non-pale, not jaundice. Lower extremities: --no - Pitting edema no deformity, no focal swelling, no calf TTP. Makes eye contact. moves all four extremities. Face: no apparent facial droop. ED COURSE: DISCLAIMER: This medical document was created using an electronic medical record system with voice recognition software and computerized dictation system. Although this document has been carefully reviewed, there might still be some phonetic and typographical errors. Occasional wrong-word or "sound-alike" substitutions may have occurred due to the inherent limitations of voice recognition software. These areas are purely typographical due to imperfections of the software programs and do not reflect any compromise in the patient's medical care. Please read the chart carefully and recognize, using context, where these substitutions have occurred. Chief Complaint: Shortness of Breath Time Seen by MD: 22:58 Reviewed notes: Medications, Allergies Information Source: Patient, Emergency Med Personnel Mode of Arrival: Ambulatory Was a procedure done? Was a procedure done?: No X-Ray, Labs, Meds, VS Vital Signs Date Time Temp Pulse Resp B/P (MAP) Pulse Ox O2 Delivery O2 Flow Rate FiO2 02/17/25 23:17 19 97 Nasal Cannula* 3 32 02/17/25 23:14 97.7 101 28 123/85 (98) 98 97.7 02/17/25 23:00 101 28 98 Nasal Cannula* 3 32 02/17/25 22:54 97.9 105 30 144/87 100 97.9 02/17/25 22:41 110 Lab Test 02/17/25 23:50 02/17/25 23:18 02/17/25 22:56 Range/Units Troponin I High Sensitivity 7 9 </=34 ng/L Influenza Type A Antigen Negative Negative Influenza Type B Antigen Negative Negative SARS-CoV-2 Antigen (Rapid) Negative NEGATIVE White Blood Count 11.5 H 4.4-10.8 10^3/uL Red Blood Count 4.86 4.0-5.20 10^6/uL Hemoglobin 13.6 12.2-16.2 g/dL Hematocrit 41.2 36.0-46.0 % Mean Corpuscular Volume 84.9 80.0-100.0 fL Mean Corpuscular Hemoglobin 27.9 L 28.0-32.0 pg Mean Corpuscular Hemoglobin Concent 32.9 32.0-36.0 g/dL Red Cell Distribution Width 15.1 H 11.8-14.3 % Platelet Count 350 140-450 10^3/uL Mean Platelet Volume 8.9 6.9-10.8 fL Neutrophils (%) (Auto) 55.1 37.0-80.0 % Lymphocytes (%) (Auto) 34.0 10.0-50.0 % Monocytes (%) (Auto) 8.5 0.0-12.0 % Eosinophils (%) (Auto) 2.2 0.0-7.0 % Basophils (%) (Auto) 0.2 0.0-2.0 % Neutrophils # (Auto) 6.3 1.6-8.6 10 ^3/uL Lymphocytes # (Auto) 3.9 0.4-5.4 10 ^3/uL Monocytes # (Auto) 1.0 0-1.3 10 ^3/uL Eosinophils # (Auto) 0.2 0-0.8 10 ^3/uL Basophils # (Auto) 0 0-0.2 10 ^3/uL Nucleated Red Blood Cells 0.0 % Sodium Level 143 136-145 mmol/L Potassium Level 3.9 3.5-5.1 mmol/L Chloride Level 111 H 98-107 mmol/L Carbon Dioxide Level 25 20-31 mmol/L Anion Gap 7 5-15 Blood Urea Nitrogen 10 9-23 mg/dL Creatinine 0.79 0.550-1.02 mg/dL Glomerular Filtration Rate Calc 88 >90 mL/min BUN/Creatinine Ratio 12.7 10.0-20.0 Serum Glucose 114 H 74-106 mg/dL Lactic Acid Level 1.0 0.4-2.0 mmol/L Calcium Level 9.7 8.7-10.4 mg/dL Total Bilirubin 0.3 0.2-1.0 mg/dL Aspartate Amino Transferase (AST) 18 13-40 U/L Alanine Aminotransferase (ALT) 15 7-40 U/L Alkaline Phosphatase 80 46-116 U/L B-Type Natriuretic Peptide 101.33 0-100 pg/mL Total Protein 6.9 5.7-8.2 g/dL Albumin 4.3 3.2-4.8 g/dL Current Medications Medications (Trade) Dose Ordered Sig/Rebeca Route Start Time Stop Time Status Last Admin Albuterol (Ventolin Medneb) 2.5 mg ONCE ONCE NEB 02/17/25 23:00 02/17/25 23:01 DC 02/17/25 23:17 Ipratropium [place] (Atrovent Medneb) 1 mg ONCE ONCE NEB 02/17/25 23:00 02/17/25 23:01 DC 02/17/25 23:17 Methylprednisolone Sodium Succinate (Solu Medrol) 125 mg ONCE ONCE IV 02/17/25 23:00 02/17/25 23:01 DC 02/17/25 23:30 Departure 1 Departure Time of Disposition: 23:49 Impression: Primary Impression: Acute asthma exacerbation Additional Impressions: Acute respiratory distress Hypoxemia Disposition: 09 ADMITTED INPATIENT Admit to: Tele Condition: Guarded Discharged With: Self I personally scribed for FRANKLIN MONIQUE DO ([email or web address]) on 02/17/25 at 22:59. Electronically submitted by Ev BeckwithST[facility]). FRANKLIN MONIQUE DO Feb 17, 2025 22:59
[2025-02-17 23:00] VITALS: PULSE 101; RESP 28; O2SAT 98
[2025-02-17 23:16] LABS: Hematocrit 41.2 % (36.0-46.0); Hemoglobin 13.6 g/dL (12.2-16.2); Mean Corpuscular Hemoglobin 27.9 pg (28.0-32.0); Mean Corpuscular Volume 84.9 fL (80.0-100.0); Nucleated Red Blood Cells % 0.0 %
[2025-02-17] MEDS: ALBUTEROL SULF 2.5 MG/0.5ML(0.5%) NEB SOLN NEB ONE (23:17)
[2025-02-17] MEDS: IPRATROPIUM BROM 0.5 MG/2.5ML INH SOL NEB ONE (23:17)
[2025-02-17 23:30] LABS: Alanine Aminotransferase 15 U/L (7-40); Albumin 4.3 g/dL (3.2-4.8); Alkaline Phosphatase 80 U/L (46-116); Anion Gap 7 (5-15); BUN/Creatinine Ratio 12.7 (10.0-20.0); Bilirubin, Total 0.3 mg/dL (0.2-1.0); Blood Urea Nitrogen 10 mg/dL (9-23); Calcium 9.7 mg/dL (8.7-10.4); Carbon Dioxide 25 mmol/L (20-31); Potassium 3.9 mmol/L (3.5-5.1); Sodium 143 mmol/L (136-145); Total Protein 6.9 g/dL (5.7-8.2)
[2025-02-17] MEDS: methylPREDNISolone SOD SUCC 125 MG/2 ML VL IV ONE (23:30)
[2025-02-17 23:36] LABS: Chloride 111 mmol/L (98-107); Glucose 114 mg/dL (74-106)
--- NOTE | 2025-02-17 23:48 | DVH ---
CHEST RADIOGRAPH INDICATION: SOB TECHNIQUE: Single frontal view of the chest was obtained COMPARISON: XY CHEST PORTABLE on DOS: 12/17/24, XY CHEST XRAY 1 VIEW on DOS: 05/18/24 FINDINGS: Lines and Tubes: None Lungs: Clear Pleura: No effusion. No pneumothorax. Cardiomediastinal contours: Unremarkable Bones: Unremarkable IMPRESSION: 1. No acute disease.
[2025-02-18] VITALS (16 sets, daily range): BP systolic 104–123; BP diastolic 7–85; PULSE 72–107; RESP 16–22; TEMP 97.4–98.5; O2SAT 92–99
[2025-02-18 00:09] LABS: COVID19 ANTIGEN SOFIA FIA NEGATIVE (NEGATIVE)
--- NOTE | 2025-02-18 00:20 | ECG ---
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
[2025-02-18 00:32] LABS: Base Excess -2.0 mmol/L (-2.0-3.0)
--- NOTE | 2025-02-18 00:53 | DVHHP2 ---
History of Present Illness Reason for Visit: Shortness for breath History of Present Illness 54-year-old female presents for evaluation of shortness for breath. Patient reports running out of her inhalers since yesterday. Today she became short of breath so she presented for further evaluation. On arrival patient was saturat ing in the high 80s. Currently denies chest pain. No cough or fever. No other acute complaints. Past Medical History Hypertension, asthma Past Surgical History Denies Family History Noncontributory Smoke: No ALCOHOL: none Drugs: None Lives: with Family Review of Systems Review of Systems Review of systems are currently negative otherwise addressed in HPI. Allergies: Coded Allergies: NO KNOWN ALLERGIES (Unverified , 05/18/24) Exam Vital Signs Vital Signs Date Time Temp Pulse Resp B/P (MAP) Pulse Ox O2 Delivery O2 Flow Rate FiO2 02/18/25 00:00 90 02/17/25 23:17 19 97 Nasal Cannula* 3 32 02/17/25 23:14 97.7 123/85 (98) 97.7 Exam Gen: 54-year-old female in mild distress Skin: Warm, dry, normal color and texture, no rash. HEENT: Normocephalic atraumatic, mucous membranes moist and pink. Neck: Cervical and supraclavicular nodes normal without enlargement, trachea is midline, thyroid gland is normal without masses. Pulmonary: Bilateral wheeze Cardiac: Sinus tachycardia Abdomen: Soft, nontender, nondistended, bowel sounds present all 4 quadrants, no guarding, no rigidity, no organomegaly. Extremities: No cyanosis, clubbing, no edema Neuro: Cranial nerves II through XII grossly intact, normal affect and speech, no focal motor deficits. Labs/Xrays ORDERING PHYSICIAN: FRANKLIN MONIQUE DO PROCEDURE(s): CXRP - CHEST PORTABLE REASON: SOB ORDER NUMBER(s): [id number], ACCESSION NUMBER(s): [id number] CHEST RADIOGRAPH INDICATION: SOB TECHNIQUE: Single frontal view of the chest was obtained COMPARISON: XY CHEST PORTABLE on DOS: 12/17/24, XY CHEST XRAY 1 VIEW on DOS: 05/18/24 FINDINGS: Lines and Tubes: None Lungs: Clear Pleura: No effusion. No pneumothorax. Cardiomediastinal contours: Unremarkable Bones: Unremarkable IMPRESSION: 1. No acute disease. Labs Test 02/18/25 00:22 02/17/25 23:50 02/17/25 23:18 02/17/25 22:56 Range/Units Blood Gas Specimen Type Arterial Blood Gas Sample Site Left radial Blood Gas Patient Temperature 37.0 Arterial Blood Date Drawn [id number] Arterial Blood pH 7.393 7.350-7.450 Arterial Blood Partial Pressure CO2 37.8 32.0-45.0 mmHg Arterial Blood Partial Pressure O2 56.4 L 83.0-108.0 mmHg Arterial Blood HCO3 22.5 21.0-28.0 mmol/L Arterial Blood Oxygen Saturation 89.2 L 94.0-98.0 % Arterial Blood Base Excess -2.0 -2.0-3.0 mmol/L Arterial Blood Oxyhemoglobin 87.0 L 94.0-98.0 % Arterial Blood Carboxyhemoglobin 2.3 H 0.5-1.5 % Arterial Blood Methemoglobin 0.2 0.0-1.5 % Arterial Blood Deoxyhemoglobin 10.5 H 0.0-5.0 % Jose Test Yes Blood Gas Total Hemoglobin 13.30 12.0-16.0 g/dL Blood Gas Liter Flow 0.00 Blood Gas Modality Room air Blood Gas Spontaneous Rate 18 FiO2 % 21.0 Specimen Drawn By Jose D lugo rt Troponin I High Sensitivity 7 </=34 ng/L Influenza Type A Antigen Negative Negative Influenza Type B Antigen Negative Negative SARS-CoV-2 Antigen (Rapid) Negative NEGATIVE White Blood Count 11.5 H 4.4-10.8 10^3/uL Red Blood Count 4.86 4.0-5.20 10^6/uL Hemoglobin 13.6 12.2-16.2 g/dL Hematocrit 41.2 36.0-46.0 % Mean Corpuscular Volume 84.9 80.0-100.0 fL Mean Corpuscular Hemoglobin 27.9 L 28.0-32.0 pg Mean Corpuscular Hemoglobin Concent 32.9 32.0-36.0 g/dL Red Cell Distribution Width 15.1 H 11.8-14.3 % Platelet Count 350 140-450 10^3/uL Mean Platelet Volume 8.9 6.9-10.8 fL Neutrophils (%) (Auto) 55.1 37.0-80.0 % Lymphocytes (%) (Auto) 34.0 10.0-50.0 % Monocytes (%) (Auto) 8.5 0.0-12.0 % Eosinophils (%) (Auto) 2.2 0.0-7.0 % Basophils (%) (Auto) 0.2 0.0-2.0 % Neutrophils # (Auto) 6.3 1.6-8.6 10 ^3/uL Lymphocytes # (Auto) 3.9 0.4-5.4 10 ^3/uL Monocytes # (Auto) 1.0 0-1.3 10 ^3/uL Eosinophils # (Auto) 0.2 0-0.8 10 ^3/uL Basophils # (Auto) 0 0-0.2 10 ^3/uL Nucleated Red Blood Cells 0.0 % Sodium Level 143 136-145 mmol/L Potassium Level 3.9 3.5-5.1 mmol/L Chloride Level 111 H 98-107 mmol/L Carbon Dioxide Level 25 20-31 mmol/L Anion Gap 7 5-15 Blood Urea Nitrogen 10 9-23 mg/dL Creatinine 0.79 0.550-1.02 mg/dL Glomerular Filtration Rate Calc 88 >90 mL/min BUN/Creatinine Ratio 12.7 10.0-20.0 Serum Glucose 114 H 74-106 mg/dL Lactic Acid Level 1.0 0.4-2.0 mmol/L Calcium Level 9.7 8.7-10.4 mg/dL Total Bilirubin 0.3 0.2-1.0 mg/dL Aspartate Amino Transferase (AST) 18 13-40 U/L Alanine Aminotransferase (ALT) 15 7-40 U/L Alkaline Phosphatase 80 46-116 U/L B-Type Natriuretic Peptide 101.33 0-100 pg/mL Total Protein 6.9 5.7-8.2 g/dL Albumin 4.3 3.2-4.8 g/dL SEPSIS Sepsis Screen Date sepsis recognized/suspect: Feb 17, 2025 Time Sepsis recognized/suspect: 2299 Recent Procedure: No On Antibiotic Therapy: No Respiratory Rate >20: Yes Heart Rate >90: Yes Temp<36 C (96.8 F) or >38.3 C: No SBP <90 or MAP <65 mmHG: No New Acute Mental Status Change: No Is the patient on CPAP, BIPAP,: No Physician Orders 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 ) Urinalysis (02/17/25 22:59) Chest Portable (02/17/25 22:59) Troponin-I Hs (02/18/25 01:59) Admit (02/17/25 23:53) Abg W/ Co-Ox (02/18/25 00:17) Albuterol Medneb (Ventolin Medneb) (02/18/25 01:00) Ipratropium Medneb (Atrovent Medneb) (02/18/25 01:00) Aspirin Tablet (02/18/25 10:00) Bupropion Tablet (Wellbutrin Tablet) (02/18/25 10:00) Lisinopril Tablet (Zestril Tablet) (02/18/25 10:00) Hydrocodone-Acet 5/325mg Tab ([place] 5/32 (02/18/25 01:00) Temazepam (Restoril) (02/18/25 01:00) Ondansetron Hcl (Zofran) (02/18/25 01:00) Condition: Stable (02/18/25 00:47) Acetaminophen Tablet (Tylenol Tablet) (02/18/25 01:00) Bedrest With Bathroom Privileg (02/18/25 00:47) Vital Signs Date Time Temp Pulse Resp B/P (MAP) Pulse Ox O2 Delivery O2 Flow Rate FiO2 02/18/25 00:00 90 02/17/25 23:17 19 97 Nasal Cannula* 3 32 02/17/25 23:14 97.7 101 28 123/85 (98) 98 97.7 02/17/25 23:00 101 28 98 Nasal Cannula* 3 32 02/17/25 22:54 97.9 105 30 144/87 100 97.9 02/17/25 22:41 110 Laboratory Tests Test 02/17/25 22:56 Lactic Acid Level 1.0 mmol/L (0.4-2.0) White Blood Count 11.5 10^3/uL (4.4-10.8) H Medications Medications Dose Ordered Sig/Rebeca Route Start Time Stop Time Status Last Admin Dose Admin Albuterol 2.5 mg ONCE ONCE NEB 02/17/25 23:00 02/17/25 23:01 DC 02/17/25 23:17 2.5 MG Ipratropium [place] 1 mg ONCE ONCE NEB 02/17/25 23:00 02/17/25 23:01 DC 02/17/25 23:17 1 MG Methylprednisolone Sodium Succinate 125 mg ONCE ONCE IV 02/17/25 23:00 02/17/25 23:01 DC 02/17/25 23:30 125 MG Assessment/Plan Assessment/Plan Assessment Acute on chronic hypoxic respiratory failure Asthma exacerbation Hypertension Plan Admit the patient to [facility] surge to the hospitalist [facility] nebs Resume home medications Continue treatment per orders. Plan discussed with: Patient My Orders Orders - LALITHA SILVA Procedure Category Date Status Time Admit ADMIT 02/17/25 Transmitted 23:53 Albuterol Medneb PHA 02/18/25 Transmitted (Ventolin Medneb) 01:00 Ipratropium Medneb PHA 02/18/25 Transmitted (Atrovent Medneb) 01:00 Aspirin Tablet PHA 02/18/25 Transmitted 10:00 Bupropion Tablet PHA 02/18/25 Transmitted (Wellbutrin Tablet) 10:00 Lisinopril Tablet PHA 02/18/25 Transmitted (Zestril Tablet) 10:00 Hydrocodone-Acet PHA 02/18/25 Transmitted 5/325mg Tab ([place] 01:00 Temazepam (Restoril) PHA 02/18/25 Transmitted 01:00 Ondansetron Hcl PHA 02/18/25 Transmitted (Zofran) 01:00 Condition: Stable TAMI 02/18/25 Transmitted 00:47 Acetaminophen Tablet PHA 02/18/25 Transmitted (Tylenol Tablet) 01:00 Bedrest With Bathroom TAMI 02/18/25 Transmitted Privileg 00:47 Date of Service: Feb 17, 2025 Billing Provider: LALITHA SILVA Common Visit Codes: [id number] INP/OBS CARE (HIGH) LALITHA SILVA Feb 18, 2025 00:53
[2025-02-18] MEDS ORDERED: ACETAMINOPHEN 325 MG TAB PO PRN (01:00)
[2025-02-18] MEDS ORDERED: TEMAZEPAM 15 MG CAP PO PRN (01:00)
[2025-02-18] MEDS ORDERED: ONDANSETRON HCL 4 MG/2 ML VIAL IV PRN (01:00)
[2025-02-18] MEDS: HYDROcodone-ACET 5/325MG TAB PO PRN (01:14)
[2025-02-18 06:58] LABS: Urine Protein, UAD Negative (Negative)
[2025-02-18] MEDS: IPRATROPIUM BROM 0.5 MG/2.5ML INH SOL NEB PRN (09:34)
[2025-02-18] MEDS: ALBUTEROL SULF 2.5 MG/0.5ML(0.5%) NEB SOLN NEB PRN (09:34)
[2025-02-18] MEDS: LISINOPRIL 5 MG TAB PO SCH (09:48)
[2025-02-18] MEDS ORDERED: IPRATROPIUM BROM 0.5 MG/2.5ML INH SOL NEB SCH (11:45)
[2025-02-18] MEDS ORDERED: ALBUTEROL SULF 2.5 MG/0.5ML(0.5%) NEB SOLN NEB SCH (11:45)
[2025-02-18] MEDS: IPRATROPIUM BROM 0.5 MG/2.5ML INH SOL NEB SCH (14:55)
[2025-02-18] MEDS: ALBUTEROL SULF 2.5 MG/0.5ML(0.5%) NEB SOLN NEB SCH (14:55)
[2025-02-18] MEDS: MAGNESIUM SULFATE 1GM/100ML 100 ML IV ONE (15:40)
[2025-02-18] MEDS: PROMETHAZINE HCL 6.25 MG/5 ML ORAL SYRUP PO SCH (18:00)
[2025-02-18] MEDS: BUDESONIDE (INHALATION) 0.5 MG/2 ML NEB NEB ONE (19:00)
--- NOTE | 2025-02-18 19:27 | DVHPNRES ---
Progress Note Date Seen: Feb 18, 2025 Resident Creating Document: MERRITT MON RESIDENT Has the PT tested + for MRSA If YES, has PT been informed?: No Medical Necessity Reason Pt with a Central, PICC or Fol: No Subjective Review of Systems Carmelita Mason is a 54-year-old female, with past medical history of hypertension, Asthma, COPD, migraine and anxiety. The patient came to [facility] ED with the chief complaint of 3 days of worsening shortness for breath,associated with cough and runny nose. On further questioning, the patient reports she ran out of her inhalers. As per family she continues to smoke cigarettes despite being short of breath. She was using accessory muscles so saturation was in the 80s when paramedics arrived. She was placed on 6 L oxygen that increased to 97% with shallow breathing. The patient was admitted for further assessment and management. Past medical Hx: as above Past surgical history: Cholecystectomy Family history: Mother: Bladder cancer, heart attack. Father: Stroke Social & Personal history: Smoke: 3-4 cigarettes per day. Alcohol use: 3 times per week. Denies any recreational drug usage, but she used cocaine and methamphetamine in her 20's Allergies: none, Lives: alone in [place], is in the area visiting [facility]. Hospital course: the patient seen and examined at bedside. Vital signs, labs and chart was reviewed. The patient reports dyspnea and cough. The patient continues with steroid and mednebs therapy. She is receiving O2 via nasal cannula, now at 5L. Azithromycin 500mf IV was started. We will continue following up the progress of this patient. General: Headache, denies fever or chills. Eyes: No Pain, No Vision change, No Conjunctivae inflammation, No Eyelid inflammation, No Other, No Redness ENT: No Ear pain, No Ear discharge, No Nose pain, No Nose discharge, No Nose congestion, No Mouth pain, No Mouth swelling, No Throat pain, No Throat swelling, No Other Cardiovascular: No Chest Pain, No Palpitations, No Orthopnea, No Paroxysmal No Dyspnea, No Edema, No Lt Headedness, No Other Respiratory: Wet cough, Shortness of breath, SOB with exertion and Wheezing. No Hemoptysis, No Pleuritic Pain, No Sputum, No Other Gastrointestinal: No Nausea, No Vomiting, No Abdominal Pain, No Diarrhea, No Constipation, No Melena, No Hematochezia, No Other Genitourinary: No Dysuria, No Frequency, No Incontinence, No Hematuria, No Retention, No Other Musculoskeletal: No other, No neck pain, No shoulder pain, No arm pain, No back pain, No hand pain, No leg pain, No foot pain Skin: No Rash, No Lesions, No Jaundice, No Bruising, No Other Objective vital signs Vital Sign Date Time Temp Pulse Resp B/P (MAP) Pulse Ox O2 Delivery O2 Flow Rate FiO2 02/18/25 16:58 98.1 84 20 113/71 (85) 95 98.1 02/18/25 14:55 Nasal Cannula* 2 28 Total Intake and Output 02/17/25 02/17/25 02/18/25 15:00 23:00 07:00 Intake Total 0 ml Output Total 0 ml Balance 0 ml medications Current Medications Medications Dose Ordered Sig/Rebeca Route Start Time Stop Time Status Last Admin Dose Admin Bupropion HCl 150 mg DAILY PO 02/18/25 10:00 02/18/25 09:48 150 MG Acetaminophen/ Hydrocodone Bitart 1 tab Q6HP PRN PO 02/18/25 01:00 02/18/25 16:53 1 TAB Temazepam 15 mg QHSP PRN PO 02/18/25 01:00 Ondansetron HCl 4 mg Q4HP PRN IV 02/18/25 01:00 Acetaminophen 650 mg Q6HP PRN PO 02/18/25 01:00 Losartan Potassium 50 mg DAILY PO 02/19/25 10:00 Methylprednisolone Sodium Succinate 40 mg DAILY IV 02/19/25 10:00 Azithromycin 250 ml @ 125 mls/hr DAILY IV 02/19/25 10:00 Albuterol 2.5 mg Q4HP NEB 02/18/25 14:00 02/18/25 19:01 2.5 MG Ipratropium [place] 0.5 mg Q4HP NEB 02/18/25 14:00 02/18/25 19:01 0.5 MG Promethazine HCl 6.25 mg Q6HP PO 02/18/25 18:00 Budesonide 0.5 mg BID NEB 02/18/25 22:00 Examination Gen: 54-year-old female in mild distress, with O2 via NC 5L Skin: Warm, dry, normal color and texture, no rash. HEENT: Normocephalic atraumatic, mucous membranes moist and pink. Neck: Cervical and supraclavicular nodes normal without enlargement, trachea is midline, thyroid gland is normal without masses. Pulmonary: Diminished breath sounds bilaterally, bilateral wheezing and roncus. Cardiac: Regular rate and rhythm. No murmur Abdomen: Soft, nontender, nondistended, bowel sounds present all 4 quadrants, no guarding, no rigidity, no organomegaly. Extremities: No cyanosis, clubbing, no edema. Left Elbow deformity Neuro: Cranial nerves II through XII grossly intact, normal affect and speech, no focal motor deficits. laboratory and microbiology Laboratory Tests 02/17/25 22:56 Test 02/17/25 22:56 Range/Units Serum Glucose 114 H 74-106 mg/dL Problem List/Assessment/Plan Problem List/Assessment/Plan #Acute hypoxic respiratory failure #Acute on chronic COPD exacerbation possible due to atypical pneumonia #Acute asthma exacerbation #Acute asthma and COPD overlap syndrome Azithromycin 500 ml Solu Medrol 40 mg BID Albuterol 2.5 mg Ipratropium 0.5 mg Tylenol 650 mg #Chronic Anxiety disorder - Temazepam 15 mg - Bupropion 75 mg #Chronic Migraine - Imaitrex 0.5 mg #Smoker Counseling about smoking cessation >15min PUD prophylaxis: protonix 40mg DVT prophylaxis: Lovenox 40mg Code Status: Full code PCP: Plan discussed with patient >30min Plan discussed with Dr. Burgess Plan discussed with: Patient My Orders My Orders Orders - MERRITT MON RESIDENT Procedure Category Date Status Time Losartan Tablet PHA 02/19/25 In Process (Cozaar Tablet) 10:00 Methylprednisolone PHA 02/19/25 In Process Sod Succ (Solu Medrol 10:00 Azithromycin PHA 02/19/25 In Process 500mg/250ml 10:00 Albuterol Medneb PHA 02/18/25 In Process (Ventolin Medneb) 14:00 Ipratropium Medneb PHA 02/18/25 In Process (Atrovent Medneb) 14:00 Promethazine Plain PHA 02/18/25 In Process Syrup (Phenergan Plai 18:00 Visit Coding STANDARD RES Billing Provider: ILSA GIBBS MD Date of Service if different f: Feb 18, 2025 Common Visit Codes: [id number] INP/OBS CARE(HIGH) MERRITT MON RESIDENT Feb 18, 2025 19:27
[2025-02-18] MEDS: BUDESONIDE (INHALATION) 0.5 MG/2 ML NEB NEB SCH (21:54)
[2025-02-19] VITALS (15 sets, daily range): BP systolic 116–140; BP diastolic 60–88; PULSE 70–92; RESP 16–20; TEMP 96.9–98.3; O2SAT 92–99
[2025-02-19 07:16] LABS: Anion Gap 8 (5-15); Carbon Dioxide 28 mmol/L (20-31); Potassium 3.9 mmol/L (3.5-5.1)
[2025-02-19 07:17] LABS: Calcium 9.3 mg/dL (8.7-10.4)
[2025-02-19 07:22] LABS: BUN/Creatinine Ratio 24.1 (10.0-20.0); Blood Urea Nitrogen 13 mg/dL (9-23); Glucose 86 mg/dL (74-106); Magnesium 1.9 mg/dL (1.6-2.6)
[2025-02-19 07:26] LABS: Chloride 109 mmol/L (98-107); Sodium 145 mmol/L (136-145)
[2025-02-19 07:29] LABS: Hematocrit 37.5 % (36.0-46.0); Hemoglobin 12.1 g/dL (12.2-16.2); Mean Corpuscular Hemoglobin 27.5 pg (28.0-32.0); Mean Corpuscular Volume 85.2 fL (80.0-100.0); Nucleated Red Blood Cells % 0.1 %
[2025-02-19] MEDS: MAGNESIUM SULFATE 1GM/100ML 100 ML IV ONE (08:38)
[2025-02-19] MEDS: methylPREDNISolone SOD SUCC 40 MG/ML VL IV SCH (09:28)
[2025-02-19] MEDS: LOSARTAN POTASSIUM 50 MG TAB PO SCH (09:28)
[2025-02-19] MEDS: AZITHROMYCIN 500MG/250ML 250 ML IV SCH (09:58)
--- NOTE | 2025-02-19 17:24 | DVHPNRES ---
Progress Note Date Seen: Feb 19, 2025 Resident Creating Document: MERRITT MON RESIDENT Has the PT tested + for MRSA If YES, has PT been informed?: No Medical Necessity Reason Pt with a Central, PICC or Fol: No Subjective Review of Systems Carmelita Mason is a 54-year-old female, with past medical history of hypertension, Asthma, COPD, migraine and anxiety. The patient came to [facility] ED with the chief complaint of 3 days of worsening shortness for breath,associated with cough and runny nose. On further questioning, the patient reports she ran out of her inhalers. As per family she continues to smoke cigarettes despite being short of breath. She was using accessory muscles so saturation was in the 80s when paramedics arrived. She was placed on 6 L oxygen that increased to 97% with shallow breathing. The patient was admitted for further assessment and management. Past medical Hx: as above Past surgical history: Cholecystectomy Family history: Mother: Bladder cancer, heart attack. Father: Stroke Social & Personal history: Smoke: 3-4 cigarettes per day. Alcohol use: 3 times per week. Denies any recreational drug usage, but she used cocaine and methamphetamine in her 20's Allergies: none, Lives: alone in [place], is in the area visiting famil. Hospital course: On 02/18/25 the patient seen and examined at bedside. Vital signs, labs and chart was reviewed. The patient reports dyspnea and cough. The patient continues with steroid and mednebs therapy. She is receiving O2 via nasal cannula, now at 5L. Azithromycin 500mf IV was started. We will continue following up the progress of this patient. On 02/19/25 the patient seen and examined at bedside. Vital signs, labs and chart was reviewed. The patient reports dyspnea and cough have improved.The patient continues with steroid and mednebs therapy. She is receiving O2 via nasal cannula, now at 2L. Azithromycin 500mf IV was switch to Levoquin 500mg IV. We will continue following up the progress of this patient. General: Headache, denies fever or chills. Eyes: No Pain, No Vision change, No Conjunctivae inflammation, No Eyelid inflammation, No Other, No Redness ENT: No Ear pain, No Ear discharge, No Nose pain, No Nose discharge, No Nose congestion, No Mouth pain, No Mouth swelling, No Throat pain, No Throat swelling, No Other Cardiovascular: No Chest Pain, No Palpitations, No Orthopnea, No Paroxysmal No Dyspnea, No Edema, No Lt Headedness, No Other Respiratory: Wet cough, Shortness of breath, SOB with exertion and Wheezing. No Hemoptysis, No Pleuritic Pain, No Sputum, No Other Gastrointestinal: No Nausea, No Vomiting, No Abdominal Pain, No Diarrhea, No Constipation, No Melena, No Hematochezia, No Other Genitourinary: No Dysuria, No Frequency, No Incontinence, No Hematuria, No Retention, No Other Musculoskeletal: No other, No neck pain, No shoulder pain, No arm pain, No back pain, No hand pain, No leg pain, No foot pain Skin: No Rash, No Lesions, No Jaundice, No Bruising, No Other Objective vital signs Vital Sign Date Time Temp Pulse Resp B/P (MAP) Pulse Ox O2 Delivery O2 Flow Rate FiO2 02/19/25 17:04 76 18 98 02/19/25 16:59 Nasal Cannula 2.0 02/19/25 16:59 28 02/19/25 16:45 98.2 132/85 (101) 98.2 Total Intake and Output 02/18/25 02/18/25 02/19/25 15:00 23:00 07:00 Intake Total 240 ml 400 ml 200 ml Output Total 700 ml Balance 240 ml 400 ml -500 ml medications Current Medications Medications Dose Ordered Sig/Rebeca Route Start Time Stop Time Status Last Admin Dose Admin Bupropion HCl 150 mg DAILY PO 02/18/25 10:00 02/19/25 09:27 150 MG Acetaminophen/ Hydrocodone Bitart 1 tab Q6HP PRN PO 02/18/25 01:00 02/19/25 13:43 1 TAB Temazepam 15 mg QHSP PRN PO 02/18/25 01:00 Ondansetron HCl 4 mg Q4HP PRN IV 02/18/25 01:00 Acetaminophen 650 mg Q6HP PRN PO 02/18/25 01:00 Losartan Potassium 50 mg DAILY PO 02/19/25 10:00 02/19/25 09:28 50 MG Methylprednisolone Sodium Succinate 40 mg DAILY IV 02/19/25 10:00 02/19/25 09:28 40 MG Albuterol 2.5 mg Q4HP NEB 02/18/25 14:00 02/19/25 16:58 2.5 MG Ipratropium Woodrow 0.5 mg Q4HP NEB 02/18/25 14:00 02/19/25 16:57 0.5 MG Promethazine HCl 6.25 mg Q6HP PO 02/18/25 18:00 02/19/25 17:03 6.25 MG Budesonide 0.5 mg BID NEB 02/18/25 22:00 02/19/25 08:48 0.5 MG Levofloxacin/ Dextrose 100 ml @ 100 mls/hr DAILY IV 02/19/25 13:15 02/19/25 13:36 100 MLS/HR Examination Gen: 54-year-old female in mild distress, with O2 via NC 5L Skin: Warm, dry, normal color and texture, no rash. HEENT: Normocephalic atraumatic, mucous membranes moist and pink. Neck: Cervical and supraclavicular nodes normal without enlargement, trachea is midline, thyroid gland is normal without masses. Pulmonary: Diminished breath sounds bilaterally, bilateral wheezing and roncus. Cardiac: Regular rate and rhythm. No murmur Abdomen: Soft, nontender, nondistended, bowel sounds present all 4 quadrants, no guarding, no rigidity, no organomegaly. Extremities: No cyanosis, clubbing, no edema. Left Elbow deformity Neuro: Cranial nerves II through XII grossly intact, normal affect and speech, no focal motor deficits. laboratory and microbiology Laboratory Tests 02/19/25 06:35 Test 02/19/25 06:35 Range/Units Serum Glucose 86 74-106 mg/dL Microbiology Date/Time Source Procedure Growth Status 02/19/25 07:40 Nose MRSA Screen - Final Complete Problem List/Assessment/Plan Problem List/Assessment/Plan #Acute hypoxic respiratory failure #Acute on chronic COPD exacerbation possible due to atypical pneumonia #Acute asthma exacerbation #Acute asthma and COPD overlap syndrome Azithromycin 500 ml: stopped Levoquin 500mg po IV Solu Medrol 40 mg BID Albuterol 2.5 mg Ipratropium 0.5 mg Tylenol 650 mg #Chronic Anxiety disorder - Temazepam 15 mg - Bupropion 75 mg #Chronic Migraine - Imaitrex 0.5 mg #Smoker Counseling about smoking cess #Obesity BMI 30.2 Counseling about healthy life style. PUD prophylaxis: protonix 40mg DVT prophylaxis: Lovenox 40mg Code Status: Full code PCP: Plan discussed with patient >30min Plan discussed with Dr. Burgess Plan discussed with: Patient My Orders My Orders Orders - MERRITT MON Procedure Category Date Status Time Levofloxacin 500mg PHA 02/19/25 In Process (Levaquin 500mg/ 100m 13:15 Visit Coding STANDARD RES Billing Provider: ILSA GIBBS MD Date of Service if different f: Feb 19, 2025 Common Visit Codes: [id number] INP/OBS CARE(HIGH) MERRITT MON RESIDENT Feb 19, 2025 17:24
[2025-02-19] MEDS: ENOXAPARIN SOD 40 MG/0.4 ML SYRINGE SC ONE (17:37)
[2025-02-19] MEDS: MELATONIN 5 MG TAB PO ONE (22:23)
[2025-02-20] VITALS (12 sets, daily range): BP systolic 110–165; BP diastolic 75–107; PULSE 66–85; RESP 17–19; TEMP 96.8–97.6; O2SAT 94–100
[2025-02-20 07:08] LABS: Anion Gap 10 (5-15); Carbon Dioxide 25 mmol/L (20-31); Potassium 4.0 mmol/L (3.5-5.1); Sodium 143 mmol/L (136-145)
[2025-02-20 07:10] LABS: Calcium 9.2 mg/dL (8.7-10.4)
[2025-02-20 07:15] LABS: BUN/Creatinine Ratio 17.4 (10.0-20.0); Blood Urea Nitrogen 12 mg/dL (9-23); Glucose 87 mg/dL (74-106)
[2025-02-20 07:18] LABS: Chloride 108 mmol/L (98-107)
[2025-02-20] MEDS: PANTOPRAZOLE 40 MG/10 ML VIAL INJ IV SCH (09:20)
[2025-02-20] MEDS: CITALOPRAM HYDROBR 20 MG TAB PO SCH (09:20)
[2025-02-20] MEDS: ENOXAPARIN SOD 40 MG/0.4 ML SYRINGE SC SCH (09:21)
[2025-02-20] MEDS ORDERED: LEVO500T91 PO ×2 (12:58→13:15)
[2025-02-20] MEDS ORDERED: NEBU1MIS14 INH ×2 (13:03→13:15)
[2025-02-20] MEDS ORDERED: PRED20TA2 PO (13:05)
[2025-02-20] MEDS ORDERED: UMEC1AER INH (13:06)
[2025-02-20] MEDS ORDERED: LEVA0.6320 IN (13:15)
[2025-02-20] MEDS ORDERED: PRE1T PO (13:15)
[2025-02-20] MEDS ORDERED: RESPKIT15 XX (13:15)
[2025-02-20] MEDS ORDERED: FORM1POW2 XX (13:15)
--- NOTE | 2025-02-20 13:59 | DVHDSRES ---
Discharge Summary Date of Admission Resident Creating Document: MERRITT MON RESIDENT Feb 17, 2025 at 23:53 Date of Discharge: Feb 20, 2025 Admitting Diagnosis #Acute hypoxic respiratory failure #Acute on chronic COPD exacerbation with pneumonitis possible due to atypical pneumonia #Acute asthma exacerbation #Acute asthma and COPD overlap syndrome #Chronic Anxiety disorder #Chronic Migraine #Chronic Smoker #Obesity BMI 30.2 Wounds: No wounds present on admission Labs/Diagnostic Data: Laboratory Results Test 02/20/25 05:57 02/19/25 14:41 02/19/25 06:35 02/18/25 19:11 Sodium Level 143 mmol/L (136-145) Potassium Level 4.0 mmol/L (3.5-5.1) Chloride Level 108 mmol/L (98-107) Carbon Dioxide Level 25 mmol/L (20-31) Anion Gap 10 (5-15) Blood Urea Nitrogen 12 mg/dL (9-23) Creatinine 0.69 mg/dL (0.550-1.02) Glomerular Filtration Rate Calc 102 mL/min (>90) BUN/Creatinine Ratio 17.4 (10.0-20.0) Serum Glucose 87 mg/dL (74-106) Calcium Level 9.2 mg/dL (8.7-10.4) Magnesium Level 1.9 mg/dL (1.6-2.6) White Blood Count 7.7 10^3/uL (4.4-10.8) Red Blood Count 4.40 10^6/uL (4.0-5.20) Hemoglobin 12.1 g/dL (12.2-16.2) Hematocrit 37.5 % (36.0-46.0) Mean Corpuscular Volume 85.2 fL (80.0-100.0) Mean Corpuscular Hemoglobin 27.5 pg (28.0-32.0) Mean Corpuscular Hemoglobin Concent 32.3 g/dL (32.0-36.0) Red Cell Distribution Width 14.9 % (11.8-14.3) Platelet Count 315 10^3/uL (140-450) Mean Platelet Volume 9.1 fL (6.9-10.8) Neutrophils (%) (Auto) 54.4 % (37.0-80.0) Lymphocytes (%) (Auto) 34.5 % (10.0-50.0) Monocytes (%) (Auto) 9.1 % (0.0-12.0) Eosinophils (%) (Auto) 0.7 % (0.0-7.0) Basophils (%) (Auto) 1.3 % (0.0-2.0) Neutrophils # (Auto) 4.2 10 ^3/uL (1.6-8.6) Lymphocytes # (Auto) 2.6 10 ^3/uL (0.4-5.4) Monocytes # (Auto) 0.7 10 ^3/uL (0-1.3) Eosinophils # (Auto) 0.1 10 ^3/uL (0-0.8) Basophils # (Auto) 0.1 10 ^3/uL (0-0.2) Nucleated Red Blood Cells 0.1 % B-Type Natriuretic Peptide 70.05 pg/mL (0-100) Test 02/18/25 06:42 02/18/25 01:58 02/18/25 00:22 02/17/25 23:18 Urine Color Yellow (Yellow) Urine Clarity Clear (Clear) Urine pH 5.5 (5.0-9.0) Urine Specific Dafter 1.021 (1.001-1.035) Urine Protein Negative (Negative) Urine Ketones Negative (Negative) Urine Blood Negative /uL (Negative) Urine Nitrite Negative (Negative) Urine Bilirubin Negative (Negative) Urine Urobilinogen Normal mg/dL (Negative) Urine Leukocyte Esterase 2+ /uL (Negative) Urine RBC 1 /hpf (0 - 4) Urine Microscopic WBC 6 /HPF (0-5) Urine Squamous Epithelial Cells Few /hpf (<5) Urine Bacteria None seen /hpf (None Seen) Urine Hyaline Casts Few /lpf (0 - 2) Urine Mucus Few (None Seen) Urine Glucose Normal mg/dL (Normal) Troponin I High Sensitivity 8 ng/L (</=34) Blood Gas Specimen Type Arterial Blood Gas Sample Site Left radial Blood Gas Patient Temperature 37.0 Arterial Blood Date Drawn Arterial Blood pH 7.393 (7.350-7.450) Arterial Blood Partial Pressure CO2 37.8 mmHg (32.0-45.0) Arterial Blood Partial Pressure O2 56.4 mmHg (83.0-108.0) Arterial Blood HCO3 22.5 mmol/L (21.0-28.0) Arterial Blood Oxygen Saturation 89.2 % (94.0-98.0) Arterial Blood Base Excess -2.0 mmol/L (-2.0-3.0) Arterial Blood Oxyhemoglobin 87.0 % (94.0-98.0) Arterial Blood Carboxyhemoglobin 2.3 % (0.5-1.5) Arterial Blood Methemoglobin 0.2 % (0.0-1.5) Arterial Blood Deoxyhemoglobin 10.5 % (0.0-5.0) Jose Test Yes Blood Gas Total Hemoglobin 13.30 g/dL (12.0-16.0) Blood Gas Liter Flow 0.00 Blood Gas Modality Room air Blood Gas Spontaneous Rate 18 FiO2 % 21.0 Specimen Drawn By Jose D lugo rt Influenza Type A Antigen Negative (Negative) Influenza Type B Antigen Negative (Negative) SARS-CoV-2 Antigen (Rapid) Negative (NEGATIVE) Test 02/17/25 22:56 Lactic Acid Level 1.0 mmol/L (0.4-2.0) Total Bilirubin 0.3 mg/dL (0.2-1.0) Aspartate Amino Transferase (AST) 18 U/L (13-40) Alanine Aminotransferase (ALT) 15 U/L (7-40) Alkaline Phosphatase 80 U/L (46-116) Total Protein 6.9 g/dL (5.7-8.2) Albumin 4.3 g/dL (3.2-4.8) Other Laboratory Tests 02/20/25 05:57 02/19/25 06:35 Brief Hx & Hospital Course: Carmelita Mason is a 54-year-old female, with past medical history of hypertension, Asthma, COPD, migraine and anxiety. The patient came to [facility] ED with the chief complaint of 3 days of worsening shortness for breath,associated with cough and runny nose. On further questioning, the patient reports she ran out of her inhalers. As per family she continues to smoke cigarettes despite being short of breath. She was using accessory muscles so saturation was in the 80s when paramedics arrived. She was placed on 6 L oxygen that increased to 97% with shallow breathing. The patient was admitted for further assessment and management. Past medical Hx: as above Past surgical history: Cholecystectomy Family history: Mother: Bladder cancer, heart attack. Father: Stroke Social & Personal history: Smoke: 3-4 cigarettes per day. Alcohol use: 3 times per week. Denies any recreational drug usage, but she used cocaine and methamphetamine in her 20's Allergies: none, Lives: alone in [place], is in the area visiting [facility]. Hospital course: During her admission in [facility] the patient was examined and evaluated as follow: On 02/18/25 the patient seen and examined at bedside. Vital signs, labs and chart was reviewed. The patient reports dyspnea and cough. The patient continues with steroid and mednebs therapy. She is receiving O2 via nasal cannula, now at 5L. Azithromycin 500mf IV was started. We will continue following up the progress of this patient. On 02/19/25, the patient seen and examined at bedside. Vital signs, labs and chart was reviewed. The patient reports dyspnea and cough have improved. The patient continues with steroid and mednebs therapy. On 02/20/25, he patient seen and examined at bedside. Vital signs, labs and chart was reviewed. Tthe patient was weaned off O2 via NC, today, tolerating well room air with O2sat at 97%. No fever has been reported for the last 48hrs. Due to clinical improvement, the patient will be discharge home today. The patient will continue with oral antibiotics, medneb and oral steroids. 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 Also the patient will f/u in the d/c clinic ROS: General: denies headache, fever or chills. Eyes: No Pain, No Vision change, No Conjunctivae inflammation, No Eyelid inflammation, No Other, No Redness ENT: No Ear pain, No Ear discharge, No Nose pain, No Nose discharge, No Nose congestion, No Mouth pain, No Mouth swelling, No Throat pain, No Throat swelling, No Other Cardiovascular: No Chest Pain, No Palpitations, No Orthopnea, No Paroxysmal No Dyspnea, No Edema, No Lt Headedness, No Other Respiratory: improvement on cough and tolerating room air.No Hemoptysis, No Pleuritic Pain, No Sputum, No Other Gastrointestinal: No Nausea, No Vomiting, No Abdominal Pain, No Diarrhea, No Constipation, No Melena, No Hematochezia, No Other Genitourinary: No Dysuria, No Frequency, No Incontinence, No Hematuria, No Retention, No Other Musculoskeletal: No other, No neck pain, No shoulder pain, No arm pain, No back pain, No hand pain, No leg pain, No foot pain Skin: No Rash, No Lesions, No Jaundice, No Bruising, No Other Physical exam: Gen: Alert, oriented, not in acute distress. Skin: Warm, dry, normal color and texture, no rash. HEENT: Normocephalic atraumatic, mucous membranes moist and pink. Neck: Cervical and supraclavicular nodes normal without enlargement, trachea is midline, thyroid gland is normal without masses. Pulmonary: normal lung expansion, no roncus, on room air. Cardiac: Regular rate and rhythm. No murmur Abdomen: Soft, nontender, nondistended, bowel sounds present all 4 quadrants, no guarding, no rigidity, no organomegaly. Extremities: No cyanosis, clubbing, no edema. Left Elbow deformity Neuro: Cranial nerves II through XII grossly intact, normal affect and speech, no focal motor deficits. Operations or Procedures PROCEDURE(s): CXRP - CHEST PORTABLE REASON: SOB ORDER NUMBER(s): [id number], ACCESSION NUMBER(s): [id number] CHEST RADIOGRAPH INDICATION: SOB TECHNIQUE: Single frontal view of the chest was obtained COMPARISON: XY CHEST PORTABLE on DOS: 12/17/24, XY CHEST XRAY 1 VIEW on DOS: 05/18/24 FINDINGS: Lines and Tubes: None Lungs: Clear Pleura: No effusion. No pneumothorax. Cardiomediastinal contours: Unremarkable Bones: Unremarkable IMPRESSION: 1. No acute disease. 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 F/U with d/C clinic within 1 week Medications: Levalbuterol Inhaler Levaquin 750mg po daily for 5 days Prednisone 40mg po daily for 5 days Anoro 62.5mcg/25mcg inhaler Scheduled Albuterol Sulfate (Ventolin Mdi), 90 MCG IN QIDPRN Aspirin (Aspirin Low Dose), 1 TAB PO DAILY, (Reported) Azithromycin (Azithromycin), 250 MG PO DAILY Bupropion Hcl (Bupropion Hcl Xl), 1 TAB PO QAM, (Reported) Docusate Sodium (Colace), 100 MG PO DAILY, (Reported) Gxijwseaqgx-Dhieypadowsr-Rofjw (Trelegy Ellipta 100-62.5-25 Mcg/INH), 1 PUFF IN DAILY Formoterol Fumarate Dihydrate (Formoterol Fumarate), 1 POW XX 6XD Levalbuterol HCl (Levalbuterol HCl), 0.63 MG IN 6XD Levofloxacin Hemihydrate (Levaquin 500 Mg), 750 MG PO DAILY Lisinopril (Lisinopril), 0.5 TAB PO DAILY Lurasidone Hydrochloride (Lurasidone Hydrochloride), 1 TAB PO DAILY, (Reported) Pantoprazole Sodium Sesquihydr (Protonix), 40 MG PO DAILY Prednisone (Prednisone), 40 MG PO DAILY Prednisone (Prednisone), 40 TAB PO DAILY Sertraline Hcl (Sertraline Hcl), 2 TAB PO QAM, (Reported) Sucralfate (Carafate), 10 ML PO BID Umeclidinium-Vilanterol (Anoro Ellipta 62.5-25 Mcg/INH), 1 AER INH DAILY Scheduled PRN Trazodone Hcl (Trazodone Hcl), 1-2 TAB PO QHSP PRN, (Reported) Durable Medical Equipment Nebulizers (Compressor Nebulizer), INHALER INH 6XD PRN, (DME) Respiratory Therapy Supplies (Nebulizer Kit/Tubing/Mout), NEB XX 6XD PRN, (DME) Discharge Statement: "Patient was advised to return to the ER or call 911 if any headaches, dizziness, shortness of breath, chest pain, abdominal pain, bleeding, fevers, or worsening of medical condition. Patient was counseled about treatment plan, medications, possible side effects, patientverbalized understanding. All questions were answered to the best of my ability. This discharge took greater then 30 minutes in planning, reviewing documentation, counseling the patient, and discussing with other team members." ASSESSMENT ASSESSMENT Assessment #Acute hypoxic respiratory failure #Acute on chronic COPD exacerbation with pneumonitis possible due to atypical pneumonia #Acute asthma exacerbation #Acute asthma and COPD overlap syndrome #Chronic Anxiety disorder #Chronic Migraine #Chronic Smoker #Obesity BMI 30.2 PCP: Discharge plan discussed with patient >30min Plan discussed with Dr. Burgess Visit Coding STANDARD RES Billing Provider: ILSA GIBBS MD Date of Service if different f: Feb 20, 2025 Common Visit Codes: 63699-YZR/[id number] DISCH DAY >30min MERRITT MON RESIDENT Feb 20, 2025 13:59
== END 2025-02-20 15:10 | disposition home or self-care (01) | DRG 140 ==
LOC: EDBD 22:38 → ER 22:38 → OVERFLOW 23:53 → WEST WING 02-18 03:33
PROVIDERS: ADMIT Student in an Organized Health Care Education/Training Program; ATTEND Student in an Organized Health Care Education/Training Program
DX: J44.0 Chronic obstructive pulmonary disease with (acute) lower respiratory infection (principal); J96.21 Acute and chronic respiratory failure with hypoxia; J18.9 Pneumonia, unspecified organism; J45.901 Unspecified asthma with (acute) exacerbation; K21.9 Gastro-esophageal reflux disease without esophagitis; I10 Essential (primary) hypertension; E66.9 Obesity, unspecified; J44.1 Chronic obstructive pulmonary disease with (acute) exacerbation; Z20.822 Contact with and (suspected) exposure to COVID-19; F17.210 Nicotine dependence, cigarettes, uncomplicated; F41.9 Anxiety disorder, unspecified; G43.909 Migraine, unspecified, not intractable, without status migrainosus; Z90.49 Acquired absence of other specified parts of digestive tract; Z80.52 Family history of malignant neoplasm of bladder; Z82.3 Family history of stroke; Z71.6 Tobacco abuse counseling; Z68.30 Body mass index [BMI] 30.0-30.9, adult; J70.9 Respiratory conditions due to unspecified external agent
CPT/HCPCS: 36415; 36600; 71045; 80048; 80053; 81001; 82805; 83605; 83735; 83880; 84484; 85025; 87081; 87426; 87804; 93005; 94640; 96374; G0378; J1956; J2470